=== PATIENT | female | born 1995 | race Hispanic/Latino ===

== ENCOUNTER 2017-02-25 12:06 | Emergency (ER) | payer MEDICAID ==
[2017-02-25 13:17] LABS: APPEARANCE,URINE Cloudy (CLEAR); BILIRUBIN,URINE Negative (NEGATIVE); COLOR,URINE Yellow (YELLOW); GLUCOSE, URINE (UA) Negative (NEGATIVE); KETONES,URINE Negative (NEGATIVE); LEUKOCYTE ESTERASE ,URINE Large (NEGATIVE); NITRATE,URINE Negative (NEGATIVE); OCCULT BLOOD,URINE Large (NEGATIVE); PROTEIN,URINE Trace (NEGATIVE)
[2017-02-25 13:20] LABS: BACTERIA,URINE Few /HPF (None Seen); SQUAMOUS EPITHELIAL CELL,UR Few /LPF (0-2)
[2017-02-25 13:40] LABS: BASOPHILS % (AUTO) 0.4 % (0.0-5.0); EOSINOPHILS % (AUTO) 0.2 % (0.0-8.0); HEMATOCRIT 33.7 % (36-48); LYMPHOCYTES % (AUTO) 20.3 % (21.0-51.0); MEAN CORPUSCULAR HEMOGLOBIN 29.4 pg (27.0-33.0); MEAN CORPUSCULAR HGB CONC 33.7 g/dL (32.0-36.0); MEAN CORPUSCULAR VOLUME 87.1 fL (79-99); MONOCYTES % (AUTO) 5.9 % (3.0-13.0); NEUTROPHILS % (AUTO) 73.2 % (40.0-77.0); PLATELET COUNT (AUTO) 312 K/uL (130-400); RED BLOOD CELL COUNT(AUTO) 3.88 MIL/uL (4.00-5.50); RED CELL DISTRIBUTION WIDTH 12.6 % (11.0-15.5); WHITE BLOOD COUNT (AUTO) 6.5 K/uL (4.8-10.8)
== END 2017-02-25 16:26 | disposition home or self-care (01) ==
LOC: EDH 12:06
DX: O20.0 Threatened abortion (principal); O23.41 Unspecified infection of urinary tract in pregnancy, first trimester; Z3A.01 Less than 8 weeks gestation of pregnancy
CPT/HCPCS: 36415; 76801; 81001; 83033; 84702; 85025; 86900; 86901; 96372; 99285; J2791

== ENCOUNTER 2017-03-23 20:15 | Emergency (ER) | payer MEDICAID ==
[2017-03-23 21:05] LABS: APPEARANCE,URINE Turbid (CLEAR); BILIRUBIN,URINE Negative (NEGATIVE); COLOR,URINE Yellow (YELLOW); GLUCOSE, URINE (UA) Negative (NEGATIVE); KETONES,URINE 15 mg/dL (NEGATIVE); LEUKOCYTE ESTERASE ,URINE Large (NEGATIVE); NITRATE,URINE Negative (NEGATIVE); OCCULT BLOOD,URINE Negative (NEGATIVE); PROTEIN,URINE Negative (NEGATIVE)
[2017-03-23 21:12] LABS: BACTERIA,URINE Few /HPF (None Seen); MUCUS,URINE Few LPF (None Seen); RBC,URINE None Seen /HPF (0-1)
== END 2017-03-23 23:09 | disposition home or self-care (01) ==
LOC: EDH 20:15
DX: O26.892 Other specified pregnancy related conditions, second trimester (principal); R10.31 Right lower quadrant pain; R10.32 Left lower quadrant pain; Z3A.14 14 weeks gestation of pregnancy
CPT/HCPCS: 76805; 81001

== ENCOUNTER 2017-07-08 20:24 | Observation (INO) | payer MEDICAID ==
[~2017-07-08] VITALS: Ht 167.6 cm; Wt 80.7 kg
[2017-07-08 20:54] LABS: BASOPHILS % (AUTO) 0.1 % (0.0-5.0); EOSINOPHILS % (AUTO) 0.1 % (0.0-8.0); HEMATOCRIT 26.7 % (36-48); LYMPHOCYTES % (AUTO) 6.3 % (21.0-51.0); MEAN CORPUSCULAR HEMOGLOBIN 28.8 pg (27.0-33.0); MEAN CORPUSCULAR HGB CONC 33.9 g/dL (32.0-36.0); MEAN CORPUSCULAR VOLUME 84.9 fL (80-100); MONOCYTES % (AUTO) 6.1 % (3.0-13.0); NEUTROPHILS % (AUTO) 87.4 % (40.0-77.0); PLATELET COUNT (AUTO) 378 K/uL (130-400); RED BLOOD CELL COUNT(AUTO) 3.14 MIL/uL (4.00-5.50); RED CELL DISTRIBUTION WIDTH 12.6 % (11.0-15.5); WHITE BLOOD COUNT (AUTO) 11.9 K/uL (4.8-10.8)
[2017-07-08] MEDS ORDERED: SODIUM CHLORIDE 0.9% 1000ML 1,000 ML IV ONE ×2 (21:02→22:25)
[2017-07-08 21:04] LABS: CREATININE 0.5 mg/dL (0.5-1.5); POTASSIUM 3.6 mmol/L (3.5-5.1)
[2017-07-08 21:08] LABS: ALBUMIN 2.4 g/dL (3.5-5.0); BILIRUBIN,TOTAL 0.4 mg/dL (0.2-1.0); TOTAL PROTEIN, SERUM 6.8 g/dL (6.0-8.3)
[2017-07-08 21:25] LABS: APPEARANCE,URINE CLOUDY (CLEAR); BILIRUBIN,URINE NEGATIVE (NEGATIVE); COLOR,URINE YELLOW (YELLOW); GLUCOSE, URINE (UA) 100 mg/dL (NEGATIVE); KETONES,URINE NEGATIVE (NEGATIVE); LEUKOCYTE ESTERASE ,URINE SMALL (NEGATIVE); NITRATE,URINE NEGATIVE (NEGATIVE); OCCULT BLOOD,URINE NEGATIVE (NEGATIVE); PROTEIN,URINE TRACE (NEGATIVE)
[2017-07-08 21:30] LABS: RAPID GROUP A STREP NEGATIVE (NEGATIVE)
[2017-07-08 21:35] LABS: BACTERIA,URINE Moderate /HPF (None Seen); SQUAMOUS EPITHELIAL CELL,UR Few /HPF (0-2)
[2017-07-08] MEDS ORDERED: CEFTRIAXONE SODIUM 1 GM ONE (21:53)
[2017-07-09 00:59] LABS: AMPHET/METH SCREEN,URINE NEGATIVE (NEGATIVE); BARBITURATE SCREEN, URINE NEGATIVE (NEGATIVE); BENZODIAZEPINES SCREEN,URINE NEGATIVE (NEGATIVE); CANNABINOID SCREEN,URINE NEGATIVE (NEGATIVE); COCAINE SCREEN,URINE NEGATIVE (NEGATIVE); OPIATE SCREEN,URINE NEGATIVE (NEGATIVE); PHENCYCLIDINE SCREEN,URINE NEGATIVE (NEGATIVE)
[2017-07-09] MEDS ORDERED: PHARMACY COMMUNICATION MISC SCH (01:00)
[2017-07-09] MEDS ORDERED: GENTAMICIN 120 MG IN 100ML NS 100 ML IV SCH (01:00)
[2017-07-09] MEDS: LACTATED RINGERS 1000ML 1,000 ML IV SCH ×3 (01:28→22:14)
[2017-07-09] MEDS: AMPICILLIN 2GM+NS 100ML 100 ML IV SCH ×4 (02:11→22:13)
[2017-07-09] MEDS ORDERED: GENTAMICIN SULFATE 80 MG/2 ML VIAL ONE (02:12)
[2017-07-09] MEDS ORDERED: MEPERIDINE-PF 50 MG/ML SYG IVP ONE (03:45)
[2017-07-09] MEDS ORDERED: ACETAMINOPHEN-CODEINE 300/30MG TAB PO PRN ×2 (03:45)
[2017-07-09] MEDS ORDERED: PROMETHAZINE HCL 25 MG/ML 1ML AMPULE IM SCH (03:45)
[2017-07-09] MEDS ORDERED: PROMETHAZINE HCL 25 MG/ML 1ML AMPULE IM ONE (03:51)
[2017-07-09] MEDS ORDERED: MEPERIDINE-PF 50 MG/ML SYG ONE (03:52)
[2017-07-09 09:10] VITALS: BP 109/62
[2017-07-09] MEDS: GENTAMICIN 80 MG/NS 100 ML PB 100 ML IV SCH ×2 (11:12→18:34)
[2017-07-09 11:20] VITALS: BP 115/70
[2017-07-09 15:15] VITALS: BP 100/51
[2017-07-09 20:04] VITALS: BP 112/61
[2017-07-09 23:18] VITALS: BP 113/61
[2017-07-10] MEDS ORDERED: GENTAMICIN SULFATE 80 MG/2 ML VIAL ONE (02:32)
[2017-07-10] MEDS: GENTAMICIN 80 MG/NS 100 ML PB 100 ML IV SCH ×3 (02:43→21:02)
[2017-07-10 03:40] VITALS: BP 120/72
[2017-07-10] MEDS: AMPICILLIN 2GM+NS 100ML 100 ML IV SCH ×4 (04:29→22:17)
[2017-07-10 06:10] LABS: BASOPHILS % (AUTO) 0.4 % (0.0-5.0); EOSINOPHILS % (AUTO) 0.1 % (0.0-8.0); HEMATOCRIT 25.9 % (36-48); LYMPHOCYTES % (AUTO) 13.8 % (21.0-51.0); MEAN CORPUSCULAR HEMOGLOBIN 28.6 pg (27.0-33.0); MEAN CORPUSCULAR HGB CONC 33.2 g/dL (32.0-36.0); MEAN CORPUSCULAR VOLUME 86.1 fL (80-100); MONOCYTES % (AUTO) 6.6 % (3.0-13.0); NEUTROPHILS % (AUTO) 79.1 % (40.0-77.0); PLATELET COUNT (AUTO) 340 K/uL (130-400); RED BLOOD CELL COUNT(AUTO) 3.01 MIL/uL (4.00-5.50); RED CELL DISTRIBUTION WIDTH 12.9 % (11.0-15.5)
[2017-07-10 06:15] LABS: CREATININE 0.4 mg/dL (0.5-1.5)
[2017-07-10] MEDS: LACTATED RINGERS 1000ML 1,000 ML IV SCH ×2 (06:46→15:27)
[2017-07-10 07:50] VITALS: BP_SYST 105; BP_SYST 136; BP_DIAS 64; BP_DIAS 77
[2017-07-10 11:33] VITALS: BP 102/56
[2017-07-10 15:37] VITALS: BP 124/76
[2017-07-10 19:55] VITALS: BP 108/69
[2017-07-10 23:37] VITALS: BP 109/64
[2017-07-11] MEDS: LACTATED RINGERS 1000ML 1,000 ML IV SCH ×2 (00:54→07:02)
[2017-07-11 03:01] VITALS: BP 110/60
[2017-07-11] MEDS: AMPICILLIN 2GM+NS 100ML 100 ML IV SCH (03:58)
[2017-07-11] MEDS: GENTAMICIN 80 MG/NS 100 ML PB 100 ML IV SCH (04:48)
[2017-07-11 07:43] VITALS: BP 98/55
[2017-07-11 11:44] VITALS: BP 99/56
== END 2017-07-11 12:50 | disposition home or self-care (01) ==
LOC: EDH 20:24 → INTOOBSV 20:25 → EDHIP 20:25 → OBSVTOIN 20:25 → LDH 07-09 00:38 → WSH 07-09 09:10
PROVIDERS: ADMIT Specialist; ATTEND Specialist
DX: O23.43 Unspecified infection of urinary tract in pregnancy, third trimester (principal); Z3A.29 29 weeks gestation of pregnancy; O26.893 Other specified pregnancy related conditions, third trimester; R00.0 Tachycardia, unspecified; M54.5 Low back pain
CPT/HCPCS: 36415 ×3; 76805; 80053; 80170 ×2; 80305; 81001; 82565; 83605; 83690; 84439; 84443; 84520; 85025 ×2; 87088; 87186; 87804 ×2; 87880; 93005; 96361 ×4; 96365; 96366; 96367; 96372; 96375; 96376 ×3; 99285; G0378 ×64; J0290 ×9; J0696; J1580 ×8; J2175; J2550; J7030 ×2; J7120 ×4; 96360; A4218

== ENCOUNTER 2017-08-01 12:24 | Observation (INO) | payer MEDICAID ==
[~2017-08-01] VITALS: Ht 167.6 cm; Wt 81.6 kg
[2017-08-01 13:25] LABS: APPEARANCE,URINE Cloudy (CLEAR); BILIRUBIN,URINE Negative (NEGATIVE); COLOR,URINE Dark Yellow (YELLOW); GLUCOSE, URINE (UA) Negative (NEGATIVE); KETONES,URINE Negative (NEGATIVE); LEUKOCYTE ESTERASE ,URINE Large (NEGATIVE); NITRATE,URINE Negative (NEGATIVE); OCCULT BLOOD,URINE Negative (NEGATIVE); PROTEIN,URINE Trace (NEGATIVE)
[2017-08-01] MEDS: LACTATED RINGERS 1000ML 1,000 ML IV SCH ×2 (13:30→14:22)
[2017-08-01 13:38] LABS: BACTERIA,URINE Few /HPF (None Seen); MUCUS,URINE Few LPF (None Seen); SQUAMOUS EPITHELIAL CELL,UR Moderate /HPF (0-2)
[2017-08-01 13:39] LABS: WBC,URINE 26-50 /HPF (0-1)
[2017-08-01] MEDS ORDERED: LACTATED RINGERS 1000ML IV SCH (14:15)
[2017-08-01] MEDS ORDERED: TERBUTALINE SULFATE VIAL 1MG/ML SQ PRN (14:15)
[2017-08-01] MEDS ORDERED: CEFTRIAXONE 1GM/D5W 50ML 50 ML IV SCH (14:15)
[2017-08-01] MEDS ORDERED: TERBUTALINE SULFATE VIAL 1MG/ML SQ ONE (14:20)
[2017-08-01] MEDS ORDERED: CEFTRIAXONE SODIUM 1 GM IVP SCH (15:15)
== END 2017-08-01 16:57 | disposition home or self-care (01) ==
LOC: EDH 12:24 → LDH 12:25
PROVIDERS: ADMIT Obstetrics & Gynecology; ATTEND Obstetrics & Gynecology
DX: O26.893 Other specified pregnancy related conditions, third trimester (principal); R10.13 Epigastric pain; Z3A.32 32 weeks gestation of pregnancy
CPT/HCPCS: 81001; 96372; 96374; 99285; G0378 ×5; J0696; J3105; J7120; 96360

== ENCOUNTER 2017-08-21 16:50 | Emergency (ER) | payer MEDICAID | END 2017-08-21 17:08 | disposition home or self-care (01) | LOC: EDH 16:50 | DX: O26.893 Other specified pregnancy related conditions, third trimester (principal); J06.9 Acute upper respiratory infection, unspecified; Z87.891 Personal history of nicotine dependence; Z3A.35 35 weeks gestation of pregnancy | CPT/HCPCS: 99281 ==

== ENCOUNTER 2018-04-17 12:43 | Emergency (ER) | payer MEDICAID ==
[2018-04-17] MEDS ORDERED: LIDOCAINE HCL 2% VISCOUS 15 ML UDCUP ONE (14:23)
[2018-04-17] MEDS ORDERED: MAG HYDROX/AL HYDROX/SIMETH ES 30 ML SUSP UDCUP ONE (14:23)
[2018-04-17 14:55] LABS: BILIRUBIN,URINE Negative (NEGATIVE); COLOR,URINE Dark Yellow (YELLOW); GLUCOSE, URINE (UA) Negative (NEGATIVE); KETONES,URINE 15 mg/dL (NEGATIVE); LEUKOCYTE ESTERASE ,URINE Large (NEGATIVE); NITRATE,URINE Positive (NEGATIVE); OCCULT BLOOD,URINE Negative (NEGATIVE); PROTEIN,URINE Negative (NEGATIVE)
[2018-04-17 14:56] LABS: APPEARANCE,URINE CLOUDY (CLEAR)
[2018-04-17 14:58] LABS: RBC,URINE None Seen /HPF (0-1)
[2018-04-17 14:59] LABS: BACTERIA,URINE Moderate /HPF (None Seen)
[2018-04-17 15:10] LABS: HCG,QUAL RESULT POSITIVE (NEGATIVE)
== END 2018-04-17 15:32 | disposition home or self-care (01) ==
LOC: EDH 12:43
DX: N39.0 Urinary tract infection, site not specified (principal); Z33.1 Pregnant state, incidental
CPT/HCPCS: 81001; 81025

== ENCOUNTER 2018-05-15 16:19 | Emergency (ER) | payer MEDICAID ==
[2018-05-15 16:43] LABS: APPEARANCE,URINE Clear (CLEAR); BILIRUBIN,URINE Negative (NEGATIVE); COLOR,URINE Yellow (YELLOW); GLUCOSE, URINE (UA) Negative (NEGATIVE); KETONES,URINE Negative (NEGATIVE); LEUKOCYTE ESTERASE ,URINE Moderate (NEGATIVE); NITRATE,URINE Positive (NEGATIVE); OCCULT BLOOD,URINE Negative (NEGATIVE); PROTEIN,URINE Negative (NEGATIVE)
[2018-05-15 16:52] LABS: BACTERIA,URINE Moderate /HPF (None Seen); RBC,URINE None Seen /HPF (0-1); SQUAMOUS EPITHELIAL CELL,UR 0-2 /HPF (0-2)
[2018-05-15 17:26] LABS: BASOPHILS % (AUTO) 0.4 % (0.0-5.0); EOSINOPHILS % (AUTO) 0.4 % (0.0-8.0); HEMATOCRIT 33.9 % (36-48); LYMPHOCYTES % (AUTO) 20.4 % (21.0-51.0); MEAN CORPUSCULAR HGB CONC 33.9 g/dL (32.0-36.0); MEAN CORPUSCULAR VOLUME 85.5 fL (79-99); NEUTROPHILS % (AUTO) 73.8 % (40.0-77.0); PLATELET COUNT (AUTO) 416 K/uL (130-400); RED BLOOD CELL COUNT(AUTO) 3.96 MIL/uL (4.00-5.50); WHITE BLOOD COUNT (AUTO) 7.9 K/uL (4.8-10.8)
[2018-05-15 17:42] LABS: CREATININE 0.6 mg/dL (0.5-1.5)
[2018-05-15] MEDS ORDERED: NITROFURANTOIN MONOHYD/M-CRYST 100 MG CAPSULE PO ONE (17:52)
[2018-05-15 18:20] LABS: ALBUMIN 3.6 g/dL (3.5-5.0); BILIRUBIN,TOTAL 0.2 mg/dL (0.2-1.0)
== END 2018-05-15 18:20 | disposition home or self-care (01) ==
LOC: EDH 16:19
DX: O20.0 Threatened abortion (principal); O23.41 Unspecified infection of urinary tract in pregnancy, first trimester; Z3A.10 10 weeks gestation of pregnancy
CPT/HCPCS: 36415; 76801; 80053; 81001; 84702; 85025; 86900; 86901; 87077; 87088; 87186

== ENCOUNTER 2018-09-24 14:36 | Emergency (ER) | payer MEDICAID | END 2018-09-24 15:03 | disposition home or self-care (01) | LOC: EDH 14:36 | DX: O99.341 Other mental disorders complicating pregnancy, first trimester (principal); F41.9 Anxiety disorder, unspecified; F31.9 Bipolar disorder, unspecified; Z3A.01 Less than 8 weeks gestation of pregnancy ==

== ENCOUNTER 2018-10-30 11:11 | Observation (INO) | payer MEDICAID ==
[2018-10-30 11:41] LABS: APPEARANCE,URINE Cloudy (CLEAR); BILIRUBIN,URINE Negative (NEGATIVE); COLOR,URINE Dark Yellow (YELLOW); GLUCOSE, URINE (UA) Negative (NEGATIVE); KETONES,URINE Negative (NEGATIVE); LEUKOCYTE ESTERASE ,URINE Large (NEGATIVE); NITRATE,URINE Negative (NEGATIVE); OCCULT BLOOD,URINE Negative (NEGATIVE); PH,URINE 6.5 (5.0-8.0); PROTEIN,URINE Trace mg/dL (NEGATIVE)
[2018-10-30 11:50] LABS: BACTERIA,URINE Moderate /HPF (None Seen); SQUAMOUS EPITHELIAL CELL,UR Moderate /HPF (0-2); WBC,URINE 51-100 /HPF (0-1)
[2018-10-30 11:51] LABS: MUCUS,URINE Few LPF (None Seen)
[2018-10-30] MEDS ORDERED: LACTATED RINGERS 1000ML 1,000 ML IV SCH (14:00)
[2018-10-30] MEDS ORDERED: CEFTRIAXONE SODIUM 1 GM ONE (14:27)
[2018-10-31] MEDS ORDERED: CEFTRIAXONE SODIUM 1 GM IVP SCH (09:00)
== END 2018-10-30 15:40 | disposition home or self-care (01) ==
LOC: EDH 11:11 → LDH 11:23
PROVIDERS: ADMIT Specialist; ATTEND Specialist
DX: O26.893 Other specified pregnancy related conditions, third trimester (principal); R10.2 Pelvic and perineal pain; O99.343 Other mental disorders complicating pregnancy, third trimester; F32.9 Major depressive disorder, single episode, unspecified; Z3A.33 33 weeks gestation of pregnancy
CPT/HCPCS: 81001; 99284; G0378 ×4; J0696; J7120; 96360

== ENCOUNTER 2018-12-03 17:36 | Observation (INO) | payer MEDICAID | END 2018-12-03 19:00 | disposition home or self-care (01) | LOC: LDH 17:36 | PROVIDERS: ADMIT Specialist; ATTEND Specialist | DX: O36.8130 Decreased fetal movements, third trimester, not applicable or unspecified (principal); O99.343 Other mental disorders complicating pregnancy, third trimester; F32.9 Major depressive disorder, single episode, unspecified; Z3A.38 38 weeks gestation of pregnancy | CPT/HCPCS: 59025; 76819; G0378 ==

== ENCOUNTER 2019-03-19 13:01 | Emergency (ER) | payer MEDICAID ==
[2019-03-19] MEDS ORDERED: IPRATROPIUM/ALBUTEROL SULFATE 3 ML SOLUTION IH ONE (14:35)
== END 2019-03-19 14:10 | disposition home or self-care (01) ==
LOC: EDH 13:01
DX: M94.0 Chondrocostal junction syndrome [Tietze] (principal); F41.9 Anxiety disorder, unspecified; F31.9 Bipolar disorder, unspecified
CPT/HCPCS: 93005

== ENCOUNTER 2019-05-31 12:43 | Emergency (ER) | payer MEDICAID ==
[2019-05-31] MEDS ORDERED: ACETAMINOPHEN 325 MG TAB ONE (12:53)
[2019-05-31 13:08] LABS: RAPID GROUP A STREP POSITIVE (NEGATIVE)
[2019-05-31] MEDS ORDERED: LIDOCAINE HCL-MPF 1% 2ML VIAL ONE (13:09)
[2019-05-31] MEDS ORDERED: CEFTRIAXONE SODIUM 1 GM ONE (13:09)
== END 2019-05-31 13:32 | disposition home or self-care (01) ==
LOC: EDH 12:43
DX: J02.0 Streptococcal pharyngitis (principal); F41.9 Anxiety disorder, unspecified; F32.9 Major depressive disorder, single episode, unspecified
CPT/HCPCS: 87804 ×2; 87880; 96372; 99283; J0696; J3490

== ENCOUNTER 2020-03-16 14:14 | Emergency (ER) | payer MEDICAID ==
[2020-03-16] MEDS ORDERED: ACETAMINOPHEN 325 MG TAB ONE (14:47)
[2020-03-16 14:48] LABS: BASOPHILS % (AUTO) 0.2 % (0.0-5.0); EOSINOPHILS % (AUTO) 0.4 % (0.0-8.0); HEMATOCRIT 33.7 % (36-48); MEAN CORPUSCULAR HEMOGLOBIN 28.3 pg (27.0-33.0); MEAN CORPUSCULAR HGB CONC 32.3 g/dL (32.0-36.0); MEAN CORPUSCULAR VOLUME 87.5 fL (79-99); MONOCYTES % (AUTO) 5.1 % (3.0-13.0); PLATELET COUNT (AUTO) 426 K/uL (130-400); RED BLOOD CELL COUNT(AUTO) 3.85 MIL/uL (4.00-5.50); RED CELL DISTRIBUTION WIDTH 11.9 % (11.0-15.5); WHITE BLOOD COUNT (AUTO) 9.8 K/uL (4.8-10.8)
[2020-03-16 14:54] LABS: APPEARANCE,URINE Clear (CLEAR); BILIRUBIN,URINE Negative (NEGATIVE); COLOR,URINE Yellow (YELLOW); GLUCOSE, URINE (UA) Negative (NEGATIVE); KETONES,URINE Negative (NEGATIVE); LEUKOCYTE ESTERASE ,URINE Trace (NEGATIVE); NITRATE,URINE Negative (NEGATIVE); OCCULT BLOOD,URINE Moderate (NEGATIVE); PROTEIN,URINE Negative (NEGATIVE); UROBILINOGEN,URINE 0.2 mg/dL (0.2-1.0)
[2020-03-16 14:56] LABS: CREATININE 0.7 mg/dL (0.5-1.5); POTASSIUM 3.6 mmol/L (3.5-5.1)
[2020-03-16 15:01] LABS: HCG,QUAL RESULT NEGATIVE (NEGATIVE)
[2020-03-16 15:02] LABS: ALBUMIN 3.8 g/dL (3.5-5.0); BILIRUBIN,TOTAL 0.5 mg/dL (0.2-1.0); TOTAL PROTEIN, SERUM 8.9 g/dL (6.0-8.3)
[2020-03-16 15:13] LABS: BACTERIA,URINE Few /HPF (None Seen); SQUAMOUS EPITHELIAL CELL,UR Few /HPF (0-2)
== END 2020-03-16 16:29 | disposition home or self-care (01) ==
LOC: EDH 14:14
DX: R07.1 Chest pain on breathing (principal); F41.9 Anxiety disorder, unspecified; F31.9 Bipolar disorder, unspecified; Z72.0 Tobacco use
CPT/HCPCS: 36415; 71045; 80053; 81001; 81025; 82150; 83690; 85025; 93005

== ENCOUNTER 2020-06-24 19:27 | Emergency (ER) | payer MEDICAID ==
[2020-06-24 19:48] LABS: APPEARANCE,URINE CLOUDY (CLEAR); BILIRUBIN,URINE NEGATIVE (NEGATIVE); COLOR,URINE YELLOW (YELLOW); GLUCOSE, URINE (UA) NEGATIVE (NEGATIVE); KETONES,URINE NEGATIVE (NEGATIVE); LEUKOCYTE ESTERASE ,URINE MODERATE (NEGATIVE); NITRATE,URINE NEGATIVE (NEGATIVE); OCCULT BLOOD,URINE TRACE-INTACT (NEGATIVE); PH,URINE 5.5 (5.0-8.0); PROTEIN,URINE NEGATIVE (NEGATIVE); UROBILINOGEN,URINE 0.2 mg/dL (0.2-1.0)
[2020-06-24 19:56] LABS: HCG,QUAL RESULT NEGATIVE (NEGATIVE)
[2020-06-24 19:59] LABS: BACTERIA,URINE Few /HPF (None Seen); MUCUS,URINE Few LPF (None Seen); SQUAMOUS EPITHELIAL CELL,UR Moderate /HPF (0-2)
[2020-06-24 20:00] LABS: HYALINE CASTS, URINE 0-1 /LPF (0-1 /LPF)
[2020-06-24 20:03] LABS: BASOPHILS % (AUTO) 0.2 % (0.0-5.0); EOSINOPHILS % (AUTO) 0.3 % (0.0-8.0); HEMATOCRIT 33.9 % (36-48); LYMPHOCYTES % (AUTO) 22.1 % (21.0-51.0); MEAN CORPUSCULAR HEMOGLOBIN 27.9 pg (27.0-33.0); MEAN CORPUSCULAR HGB CONC 32.4 g/dL (32.0-36.0); MONOCYTES % (AUTO) 5.1 % (3.0-13.0); NEUTROPHILS % (AUTO) 72.1 % (40.0-77.0); PLATELET COUNT (AUTO) 343 K/uL (130-400); RED BLOOD CELL COUNT(AUTO) 3.94 MIL/uL (4.00-5.50); RED CELL DISTRIBUTION WIDTH 12.4 % (11.0-15.5); WHITE BLOOD COUNT (AUTO) 8.6 K/uL (4.8-10.8)
[2020-06-24 20:17] LABS: CREATININE 0.7 mg/dL (0.5-1.5); POTASSIUM 3.5 mmol/L (3.5-5.1)
[2020-06-24 20:21] LABS: ALBUMIN 3.7 g/dL (3.5-5.0); BILIRUBIN,TOTAL 0.3 mg/dL (0.2-1.0); TOTAL PROTEIN, SERUM 8.4 g/dL (6.0-8.3)
[2020-06-24] MEDS ORDERED: METRONIDAZOLE 500 MG TABLET ONE (20:34)
[2020-06-24] MEDS ORDERED: ONDANSETRON HCL 4 MG/2 ML VIAL ONE (20:34)
[2020-06-24] MEDS ORDERED: KETOROLAC TROMETHAMINE 30MG/ML ONE (20:34)
[2020-06-24] MEDS ORDERED: SODIUM CHLORIDE 0.9% 1000ML 1,000 ML IV ONE (20:37)
== END 2020-06-24 21:23 | disposition home or self-care (01) ==
LOC: EEVIPCON 19:27 → EDH 19:27
DX: K52.9 Noninfective gastroenteritis and colitis, unspecified (principal); F41.9 Anxiety disorder, unspecified; F32.9 Major depressive disorder, single episode, unspecified
CPT/HCPCS: 36415; 74176; 80053; 81001; 81025; 83605; 83690; 85025; 87088; 96361; 96374; 96375; 99284; J1885; J2405; J7030

== ENCOUNTER 2020-10-12 12:03 | Emergency (ER) | payer MEDICAID ==
[~2020-10-12] VITALS: Ht 167.6 cm; Wt 86.2 kg
[2020-10-12 12:05] VITALS: BP 130/73
[2020-10-12 12:06] VITALS: BP 130/73
[2020-10-12] MEDS ORDERED: CEFTRIAXONE 1G VIAL IM ONE (13:30)
[2020-10-12] MEDS ORDERED: PHENAZOPYRIDINE HCL 200 MG TABLET PO ONE (13:30)
[2020-10-12] MEDS ORDERED: CEFTRIAXONE 1G VIAL ONE (13:32)
[2020-10-12] MEDS ORDERED: LIDOCAINE HCL-MPF 1% 2ML VIAL ONE (13:32)
[2020-10-12] MEDS ORDERED: PHENAZOPYRIDINE HCL 200 MG TABLET ONE (13:33)
[2020-10-12 13:45] LABS: APPEARANCE,URINE Clear (CLEAR); BILIRUBIN,URINE Negative (NEGATIVE); COLOR,URINE Dark Yellow (YELLOW); GLUCOSE, URINE (UA) Negative (NEGATIVE); KETONES,URINE Trace mg/dL (NEGATIVE); LEUKOCYTE ESTERASE ,URINE Moderate (NEGATIVE); NITRATE,URINE Negative (NEGATIVE); OCCULT BLOOD,URINE Negative (NEGATIVE); PROTEIN,URINE Negative (NEGATIVE)
[2020-10-12 14:56] LABS: BACTERIA,URINE Few /HPF (None Seen); MUCUS,URINE Few LPF (None Seen); RBC,URINE 0-1 /HPF (0-1); SQUAMOUS EPITHELIAL CELL,UR Few /HPF (0-2)
[2020-10-12] MEDS ORDERED: CEPH500B PO (15:21)
[2020-10-12] MEDS ORDERED: PHEN-847 PO (15:21)
== END 2020-10-12 15:31 | disposition home or self-care (01) ==
LOC: EDH 12:03
DX: N39.0 Urinary tract infection, site not specified (principal); J02.9 Acute pharyngitis, unspecified
CPT/HCPCS: 81001; 81025; 87088; 87880; 96372; 99283; J0696; J3490

== ENCOUNTER 2021-05-14 15:18 | Emergency (ER) | payer MEDICAID ==
[~2021-05-14] VITALS: Ht 167.6 cm; Wt 81.6 kg
[~2021-05-14 15:18] MED LIST: CEPH500B PO; PHEN-847 PO
[2021-05-14 16:16] LABS: BASOPHILS % (AUTO) 0.5 % (0.0-5.0); EOSINOPHILS % (AUTO) 0.5 % (0.0-8.0); HEMATOCRIT 34.4 % (36-48); LYMPHOCYTES % (AUTO) 29.8 % (21.0-51.0); MEAN CORPUSCULAR HEMOGLOBIN 28.8 pg (27.0-33.0); MEAN CORPUSCULAR HGB CONC 32.8 g/dL (32.0-36.0); MEAN CORPUSCULAR VOLUME 87.5 fL (79-99); NEUTROPHILS % (AUTO) 61.9 % (40.0-77.0); PLATELET COUNT (AUTO) 328 K/uL (130-400); RED BLOOD CELL COUNT(AUTO) 3.93 MIL/uL (4.00-5.50); RED CELL DISTRIBUTION WIDTH 12.1 % (11.0-15.5); WHITE BLOOD COUNT (AUTO) 6.6 K/uL (4.8-10.8)
[2021-05-14 16:27] LABS: CREATININE 0.8 mg/dL (0.5-1.5)
[2021-05-14 16:31] LABS: ALBUMIN 3.7 g/dL (3.5-5.0); BILIRUBIN,TOTAL 0.3 mg/dL (0.2-1.0)
[2021-05-14 16:42] LABS: APPEARANCE,URINE Clear (CLEAR); BILIRUBIN,URINE Negative (NEGATIVE); COLOR,URINE Yellow (YELLOW); GLUCOSE, URINE (UA) Negative (NEGATIVE); KETONES,URINE Negative (NEGATIVE); LEUKOCYTE ESTERASE ,URINE Trace (NEGATIVE); NITRATE,URINE Negative (NEGATIVE); OCCULT BLOOD,URINE Negative (NEGATIVE); PH,URINE >=9.0 (5.0-8.0); PROTEIN,URINE Trace mg/dL (NEGATIVE)
[2021-05-14 16:44] LABS: HCG,QUAL RESULT NEGATIVE (NEGATIVE)
[2021-05-14 16:50] LABS: AMPHET/METH SCREEN,URINE NEGATIVE (NEGATIVE); BARBITURATE SCREEN, URINE NEGATIVE (NEGATIVE); BENZODIAZEPINES SCREEN,URINE NEGATIVE (NEGATIVE); CANNABINOID SCREEN,URINE POSITIVE (NEGATIVE); COCAINE SCREEN,URINE NEGATIVE (NEGATIVE); OPIATE SCREEN,URINE NEGATIVE (NEGATIVE); PHENCYCLIDINE SCREEN,URINE NEGATIVE (NEGATIVE)
[2021-05-14] MEDS ORDERED: PHEN-847 PO (16:58)
[2021-05-14] MEDS ORDERED: CEPH500B PO (16:58)
[2021-05-14 17:02] LABS: BACTERIA,URINE Rare /HPF (None Seen); MUCUS,URINE Few LPF (None Seen); SQUAMOUS EPITHELIAL CELL,UR Few /HPF (0-2)
[2021-05-14 17:06] VITALS: BP 117/66
== END 2021-05-14 17:10 | disposition home or self-care (01) ==
LOC: EDH 15:18
DX: N39.0 Urinary tract infection, site not specified (principal); R30.0 Dysuria; F41.9 Anxiety disorder, unspecified; F32.A Depression, unspecified
CPT/HCPCS: 36415; 80053; 80305; 81001; 81025; 82150; 83690; 85025

== ENCOUNTER 2021-06-30 21:23 | Emergency (ER) | payer MEDICAID ==
[~2021-06-30] VITALS: Ht 167.6 cm; Wt 86.2 kg
[2021-06-30 21:48] LABS: BASOPHILS % (AUTO) 0.4 % (0.0-5.0); EOSINOPHILS % (AUTO) 0.6 % (0.0-8.0); HEMATOCRIT 38.1 % (36-48); LYMPHOCYTES % (AUTO) 28.7 % (21.0-51.0); MEAN CORPUSCULAR HEMOGLOBIN 27.8 pg (27.0-33.0); MEAN CORPUSCULAR HGB CONC 31.8 g/dL (32.0-36.0); MEAN CORPUSCULAR VOLUME 87.6 fL (79-99); MONOCYTES % (AUTO) 6.1 % (3.0-13.0); NEUTROPHILS % (AUTO) 63.8 % (40.0-77.0); PLATELET COUNT (AUTO) 385 K/uL (130-400); RED BLOOD CELL COUNT(AUTO) 4.35 MIL/uL (4.00-5.50); RED CELL DISTRIBUTION WIDTH 12.1 % (11.0-15.5); WHITE BLOOD COUNT (AUTO) 9.5 K/uL (4.8-10.8)
[2021-06-30 21:50] LABS: APPEARANCE,URINE Clear (CLEAR); BILIRUBIN,URINE Negative (NEGATIVE); COLOR,URINE Yellow (YELLOW); GLUCOSE, URINE (UA) Negative (NEGATIVE); KETONES,URINE Negative (NEGATIVE); LEUKOCYTE ESTERASE ,URINE Negative (NEGATIVE); NITRATE,URINE Negative (NEGATIVE); OCCULT BLOOD,URINE Negative (NEGATIVE); PROTEIN,URINE Negative (NEGATIVE); UROBILINOGEN,URINE 0.2 mg/dL (0.2-1.0)
[2021-06-30 21:51] LABS: HCG,QUAL RESULT NEGATIVE (NEGATIVE)
[2021-06-30 22:00] LABS: CREATININE 0.8 mg/dL (0.5-1.5)
[2021-06-30 22:09] LABS: ALBUMIN 3.9 g/dL (3.5-5.0); BILIRUBIN,TOTAL 0.2 mg/dL (0.2-1.0); TOTAL PROTEIN, SERUM 8.3 g/dL (6.0-8.3)
[2021-06-30] MEDS ORDERED: KETOROLAC 60 MG VIAL (30MG/ML) IM ONE (22:30)
[2021-06-30] MEDS ORDERED: CYCLOBENZAPRINE HCL 10 MG TABLET PO ONE (22:30)
[2021-06-30] MEDS ORDERED: NAPR-1180 PO (22:40)
[2021-06-30] MEDS ORDERED: CYCL10TA16 PO (22:40)
[2021-06-30 22:44] VITALS: BP 138/84
== END 2021-06-30 22:52 | disposition home or self-care (01) ==
LOC: EDH 21:23
DX: M94.0 Chondrocostal junction syndrome [Tietze] (principal); R03.0 Elevated blood-pressure reading, without diagnosis of hypertension; F41.9 Anxiety disorder, unspecified; E66.9 Obesity, unspecified; Z68.30 Body mass index [BMI] 30.0-30.9, adult; Z79.1 Long term (current) use of non-steroidal anti-inflammatories (NSAID)
CPT/HCPCS: 36415; 80053; 81003; 81025; 84484; 85025; 93005; 96372; 99284; J1885

== ENCOUNTER 2021-07-23 23:30 | Emergency (ER) | payer MEDICAID ==
[~2021-07-23] VITALS: Ht 170.2 cm; Wt 86.2 kg
[~2021-07-23 23:30] MED LIST changes: +CYCL10TA16 PO; +NAPR-1180 PO
[2021-07-24] MEDS ORDERED: NAPR-1180 PO (02:00)
[2021-07-24] MEDS ORDERED: AZIT1PAC7 PO (02:00)
[2021-07-24] MEDS: KETOROLAC 15MG/ML VIAL (15MG/ML) IM ONE (02:02)
[2021-07-24] MEDS: KETOROLAC 15MG/ML VIAL (15MG/ML) ONE (02:03)
[2021-07-24 02:04] VITALS: BP 121/73
== END 2021-07-24 02:10 | disposition home or self-care (01) ==
LOC: EDH 23:30
DX: J02.9 Acute pharyngitis, unspecified (principal); Z20.822 Contact with and (suspected) exposure to COVID-19; Z79.899 Other long term (current) drug therapy
CPT/HCPCS: 87635; 87804 ×2; 87880; 96372; 99283; C9803; J1885

== ENCOUNTER 2022-02-07 18:55 | Emergency (ER) | payer MEDICAID ==
[~2022-02-07] VITALS: Ht 167.6 cm; Wt 89.8 kg
[~2022-02-07 18:55] MED LIST changes: +AZIT1PAC7 PO
[2022-02-07 19:48] LABS: APPEARANCE,URINE CLEAR (CLEAR); BILIRUBIN,URINE NEGATIVE (NEGATIVE); COLOR,URINE COLORLESS (YELLOW); GLUCOSE, URINE (UA) NEGATIVE (NEGATIVE); KETONES,URINE NEGATIVE (NEGATIVE); LEUKOCYTE ESTERASE ,URINE NEGATIVE Leu/uL (NEGATIVE); NITRATE,URINE NEGATIVE (NEGATIVE); OCCULT BLOOD,URINE NEGATIVE (NEGATIVE); PROTEIN,URINE NEGATIVE (NEGATIVE); UROBILINOGEN,URINE 0.2 mg/dL (0.2-1.0)
[2022-02-07 19:50] LABS: HCG,QUALITATIVE URINE NEGATIVE (NEGATIVE)
[2022-02-07 20:08] VITALS: BP 142/97
[2022-02-07] MEDS ORDERED: MECL-226 PO (20:56)
== END 2022-02-07 21:33 | disposition home or self-care (01) ==
LOC: EDH 18:55
DX: R42 Dizziness and giddiness (principal); F41.9 Anxiety disorder, unspecified; F32.9 Major depressive disorder, single episode, unspecified; Z79.899 Other long term (current) drug therapy
CPT/HCPCS: 81003; 81025; 82948; 93005

== ENCOUNTER 2022-07-24 20:14 | Emergency (ER) | payer MEDICAID ==
[~2022-07-24 20:14] MED LIST changes: +MECL-226 PO
== END 2022-07-24 21:25 | disposition left against medical advice (07) ==
LOC: EDH 20:14
DX: N93.9 Abnormal uterine and vaginal bleeding, unspecified (principal); Z53.21 Procedure and treatment not carried out due to patient leaving prior to being seen by health care provider

== ENCOUNTER 2023-02-01 07:25 | Emergency (ER) | payer MEDICAID ==
[~2023-02-01] VITALS: Ht 170.2 cm; Wt 86.2 kg
[2023-02-01 08:12] LABS: SARS-CoV-2, RNA, NAAT NEGATIVE SARS CoV-2 (NEGATIVE)
[2023-02-01 08:13] LABS: RAPID GROUP A STREP negative (NEGATIVE)
[2023-02-01 08:18] LABS: INFLUENZA TYPE A Negative For Type A (NEGATIVE)
[2023-02-01 08:27] LABS: INFLUENZA TYPE B Positive For Type B (NEGATIVE)
[2023-02-01 09:08] VITALS: BP 136/78; PULSE 84; RESP 18; O2SAT 98
== END 2023-02-01 09:13 | disposition home or self-care (01) ==
LOC: EDH 07:25
DX: J10.1 Influenza due to other identified influenza virus with other respiratory manifestations (principal); Z20.822 Contact with and (suspected) exposure to COVID-19; Z79.899 Other long term (current) drug therapy; Z98.890 Other specified postprocedural states
CPT/HCPCS: 99283; 87635; 87880; 87804 ×2; C9803

== ENCOUNTER 2023-02-20 06:07 | Emergency (ER) | payer MEDICAID ==
[~2023-02-20] VITALS: Ht 170.2 cm; Wt 87.1 kg
[2023-02-20 07:06] VITALS: BP 115/73; PULSE 87; RESP 18; O2SAT 97
[2023-02-20 07:46] LABS: RAPID GROUP A STREP negative (NEGATIVE)
[2023-02-20 07:52] LABS: SARS-CoV-2, RNA, NAAT NEGATIVE SARS CoV-2 (NEGATIVE)
[2023-02-20 07:56] LABS: INFLUENZA TYPE A Negative For Type A (NEGATIVE); INFLUENZA TYPE B Negative For Type B (NEGATIVE)
[2023-02-20] MEDS ORDERED: KETOROLAC 60 MG VIAL (30MG/ML) IM ONE (08:30)
[2023-02-20] MEDS ORDERED: AMOX/CLAV 875/125MG TAB PO ONE (08:30)
[2023-02-20] MEDS ORDERED: AMOX-427 PO (09:20)
[2023-02-20] MEDS ORDERED: CIPR7.5D7 OT (09:20)
== END 2023-02-20 09:29 | disposition home or self-care (01) ==
LOC: EDH 06:07
DX: J06.9 Acute upper respiratory infection, unspecified (principal); H66.91 Otitis media, unspecified, right ear; R13.10 Dysphagia, unspecified; Z20.822 Contact with and (suspected) exposure to COVID-19; Z79.899 Other long term (current) drug therapy; Z98.890 Other specified postprocedural states
CPT/HCPCS: 99283; 87635; 87880; 87804 ×2; 96372; C9803; J1885

== ENCOUNTER 2023-07-23 03:02 | Emergency (ER) | payer MEDICAID ==
[~2023-07-23 03:02] MED LIST changes: +AMOX-427 PO; +CIPR7.5D7 OT; +SULF1TAB42 PO
[2023-07-23] MEDS: HYDROXYZINE 50MG VIAL 50 MG/ML VIAL IM SCH (03:53)
[2023-07-23 04:11] VITALS: BP 128/82; PULSE 88; RESP 16; O2SAT 99
== END 2023-07-23 04:12 | disposition home or self-care (01) ==
LOC: EDH 03:02
DX: F41.9 Anxiety disorder, unspecified (principal); F32.A Depression, unspecified; Z79.899 Other long term (current) drug therapy; Z98.890 Other specified postprocedural states
CPT/HCPCS: 99283; 96372; J3410

== ENCOUNTER 2024-05-01 08:51 | Emergency (ER) | payer MEDICAID ==
[~2024-05-01] VITALS: Ht 160 cm; Wt 97.5 kg
--- NOTE | 2024-05-01 09:01 | ERN ---
General Chief Complaint: Fever Stated Complaint: FEVER, CHILLS, NAUSEA, THROAT Time Seen by MD: 08:52 Source: patient History of Present Illness Initial Comments Patient is a 29-year-old female coming in to be evaluated for URI symptoms. Per patient she has been having sore throat for two days. ALong with this patient feels fever and chills. Allergies: Coded Allergies: No Known Drug Allergies (Verified Allergy, Unknown, 12/15/14) Home Meds Active Scripts Sulfamethoxazole/Trimethoprim (Bactrim Ds Tablet) 800 Mg-160 Mg Tablet, 1 TAB PO BID for 7 Days, #7 TAB Prov:TOM SAHNI 07/10/23 Ciprofloxacin HCl/Dexameth (Ciproflox-Dexameth Otic Susp) 0.3 %-0.1 % Drops.susp, 7.5 ML OT BID, #4 DROP 0 Refills Prov:ODALIS MORALEZ Sr., MD 02/20/23 Amoxicillin/Potassium Clav (Augmentin Xr 1,000-62.5 Tab) 1,000 Mg-62.5 Mg Tab.er.12h, 1 EACH PO BID for 10 Days, #20 TAB 0 Refills Prov:ODALIS MORALEZ Sr., MD 02/20/23 Meclizine HCl (Meclizine HCl) 12.5 Mg Tablet, 12.5 MG PO BID PRN for VERTIGO for 5 Days, #10 TAB Prov:DELICIA PASCUAL 02/07/22 Naproxen (Naprosyn) 500 Mg Tablet, 500 MG PO BIDPC for 14 Days, #28 TAB 0 Refil ls Prov:SARAI GARCIA MD 07/24/21 Azithromycin (Azithromycin) 1 Gm Packet, 1 TAB PO AD for 5 Days, #1 PKT Prov:SARAI GARCIA MD 07/24/21 Cyclobenzaprine HCl (Flexeril) 10 Mg Tab, 10 MG PO BID, #30 TAB Prov:RAÚL ROBLES 06/30/21 Naproxen (Naprosyn) 500 Mg Tablet, 500 MG PO BIDPC, #60 TAB Prov:RAÚL ROBLES 06/30/21 Phenazopyridine HCl (Pyridium) 200 Mg Tab, 200 MG PO TIDPC, #9 TAB TAKE WITH FOOD TO PREVENT STOMACH UPSET. Prov:CHECO BASURTO ADOPTION SERVICES MANAGER 05/14/21 Cephalexin Monohydrate (Keflex) 500 Mg Cap, 500 MG PO QID for 7 Days, #28 CAP Prov:CHECO BASURTO ADOPTION SERVICES MANAGER 05/14/21 Phenazopyridine HCl (Pyridium) 200 Mg Tab, 200 MG PO TIDPC for 3 Days, #9 TAB TAKE WITH FOOD TO PREVENT STOMACH UPSET. Prov:MONTANA ROBLESBobby AVALOS 10/12/20 Cephalexin Monohydrate (Keflex) 500 Mg Cap, 500 MG PO TID for 7 Days, #21 CAP Prov:RAÚL ROBLES ROBBIE 10/12/20 Past Medical History Past Medical History: Anxiety, Depression Medical History Other: ANGER ISSUES Past Surgical History: Other Surgical History Other: D&C Family History Family History: Negative Social History Social History: Negative, Lives with family Female( History) History: Not Applicable : 3 Para: 2 Aborts: 1 ROS Dictation CONSTITUTIONAL: NO CHILLS, NO FEVER, NO WEAKNESS, NO DIAPHORESIS, NO MALAISE. HEAD/FACE: NO SIGNS OF TRAUMA. EENT: NO EYE PAIN, NO BLURRED VISION, NO TEARING, NO DOUBLE VISION, NO EAR PAIN, NO EAR DISCHARGE, NO NOSE PAIN, NO NASAL CONGESTION, NO THROAT PAIN, NO THROAT SWELLING, NO MOUTH PAIN. RESPIRATORY: NO COUGH, NO ORTHOPNEA, NO SOB, NO STRIDOR, NO WHEEZING. CARDIOVASCULAR: NO CHEST PAIN, NO EDEMA, NO PALPITATIONS, NO SYNCOPE. GASTROINTESTINAL/ABDOMINAL: NO ABDOMINAL PAIN, NO CONSTIPATION, NO DIARRHEA, NO NAUSEA, NO VOMITING. GENITOURINARY: NO ABNORMAL DISCHARGE, NO DYSURIA, NO FREQUENT URINATION, NO HEMATURIA. NO COMPLAINTS OF PAIN IN THE GENITALS. MUSCULOSKELETAL: NO BACK PAIN, NO GOUT, NO JOINT PAIN, NO JOINT SWELLING, NO MUSCLE PAIN, NO MUSCLE STIFFNESS, NO NECK PAIN. INTEGUMENTARY: NO CHANGE IN COLOR, NO CHANGE IN HAIR/NAILS, NO DRYNESS, NO LESION, NO LUMPS, NO RASH. NEUROLOGICAL/PSYCH: NO ANXIETY, NOT DEPRESSED, NO EMOTIONAL PROBLEM, NO HEADACHE, NO NUMBNESS, NO PRE-EXISTING DEFICIT, NO HISTORY OF SEIZURES, NO TREMORS, NO WEAKNESS. HEMATOLOGIC/LYMPHATIC: NOT ANEMIC, NO HISTORY OF BLOOD CLOTS, NO APPARENT BLEEDING, NO BRUISING, GLANDS NOT SWOLLEN. ALL SYSTEMS NEGATIVE, EXCEPT NOTED. Physical Exam Physical Exam Dictation VITAL SIGNS: REVIEWED. GENERAL APPEARANCE: ALERT, ORIENTED X3, NO ACUTE DISTRESS, OBESE. HEAD AND FACE: NON-TRAUMATIC. EYES: PERRL, PINK CONJUNCTIVAS, EYELID NO TRAUMA, ANTERIOR CHAMBER CLEAR. EARS: PINNAS INTACT AND NO SIGNS OF TRAUMA OR ERYTHEMA. EAR CANALS CLEAR AND NO DISCHARGE. TMS NO ERYTHEMA. NOSE: NO DISCHARGE, NO BLEEDING. OROPHARYNX: MOUTH NORMAL, TEETH NO CARIES, TONGUE PINK. PHARYNX CLEAR, NO ERYTHEMA. TONSILS NO EXUDATES, NO ABSCESSES NOTED. MUCOUS MEMBRANE MOIST. NECK: SUPPLE, NON-TENDER, NO THYROMEGALY, NO MASSES, NO JVD, NO BRUITS. BREAST: DEFERRED. CHEST: NO TENDERNESS, NO CREPITUS, NO PARADOXICAL MOVEMENT, NO RETRACTIONS. LUNGS: CLEAR, WELL-VENTILATED, SYMMETRIC, NO RALES, NO WHEEZING, NO RHONCHI, NO STRIDOR, GOOD BREATH SOUNDS BILATERALLY. HEART: REGULAR RATE, REGULAR RHYTHM, NO MURMUR, NO GALLOPS. VASCULAR: NO PERIPHERAL EDEMA. ABDOMEN: SOFT, POSITIVE BOWEL SOUNDS, NONDISTENDED, NO GUARDING, NONTENDER, NO REBOUND, NO MASSES NO HEPATOMEGALY, NO SPLENOMEGALY, NO EMNDOZA'S SIGN, NO HERNIAS. RECTAL: DEFERRED. GENITAL: DEFERRED. NEUROLOGICAL: NORMAL SPEECH, GROSS MOTOR FUNCTION INTACT, GROSS SENSORY FUNCTION INTACT. MUSCULOSKELETAL: NECK NONTENDER, FULL RANGE OF MOTION, BACK NONTENDER, FULL R MP OF MOTION. EXTREMITIES: NONTENDER, FULL RANGE OF MOTION. SKIN: COLOR PINK, DRY, NO TURGOR, NO RASH, NO LACERATIONS, NO ABRASIONS, NO CONTUSIONS. LYMPHATICS: DEFERRED. Results Laboratory and Microbiology Lab and Micro Result Laboratory Tests Test 05/01/24 08:59 Influenza Type A Antigen Negative For Type A Influenza Type B Antigen Negative For Type B SARS-CoV-2, RNA, NAAT NEGATIVE SARS CoV-2 Group A Streptococcus Rapid positive (NEGATIVE) *A Labs Reviewed?: Yes MDM MDM: Differential diagnosis: COVID, flu, strep Patient is a 29-year-old female coming in to be evaluated for URI symptoms. Laboratory workup positive for strep pharyngitis. Patient will be discharged with oral antibiotics I did advised her appropriate follow up with PCP 1-2 days. Patient will be discharged in stable condition throughout ER visit patient has been stable. ED Course Orders Procedure Category Date Status Time Covid Rna Naat LAB 05/01/24 Complete 08:55 Influenza Type A & B, LAB 05/01/24 Complete Rapid 08:55 Rapid (Group A Strep) LAB 05/01/24 Complete 08:55 Acetaminophen 500mg PHA 05/01/24 Complete Tab (Tylenol 500mg T 09:00 Ibuprofen 600 Mg PHA 05/01/24 Complete Tablet (Motrin) 09:00 Current Medications Medications (Trade) Dose Ordered Sig/Devyn Route PRN Reason Start Time Stop Time Status Last Admin Dose Admin Acetaminophen (TYLenol 500MG TAB) 1,000 mg ONCE ONCE PO 05/01/24 09:00 05/01/24 09:01 DC 05/01/24 09:14 Ibuprofen (moTRIN) 600 mg ONCE ONCE PO 05/01/24 09:00 05/01/24 09:01 DC 05/01/24 09:13 Vital Signs Date Time Temp Pulse Resp B/P (MAP) Pulse Ox O2 Delivery O2 Flow Rate FiO2 05/01/24 11:17 99.0 58 18 120/78 98 Room Air* 0 21 05/01/24 09:13 99.7 05/01/24 09:01 99.7 53 18 117/79 99 Room Air* 0 21 05/01/24 08:55 99.7 109 20 117/79 DX & DISP Disposition: Discharge Departure Impression: Primary Impression: Strep pharyngitis Condition: Stable Scripts Amoxicillin (Amoxicillin) 500 Mg Capsule 1 CAP PO TID for 10 Days, #30 CAP 0 Refills Prov: ELLE JACKSON MD 05/01/24 Additional Instructions: FOLLOW-UP WITH PRIMARY CARE PROVIDER IN 1 TO 2 DAYS. TAKE MEDICATIONS DIRECTED HERE IN THE EMERGENCY ROOM. OKAY TO CONTINUE HOME MEDICATIONS UNLESS OTHERWISE DISCUSSED DURING YOUR VISIT IN THE EMERGENCY ROOM TODAY. RETURN TO YOUR NEAREST EMERGENCY ROOM IF SYMPTOMS WORSEN OR IF THERE IS NO IMPROVEMENT. CALL 911 IF YOU NEED IMMEDIATE ASSISTANCE. TAKE TYLENOL [id number] NEEDED AND IF NO CONTRAINDICATIONS ARE PRESENT. INCREASE ORAL HYDRATION. A WOUND CULTURE OR URINE CULTURE WAS ORDERED HERE IN THE EMERGENCY ROOM DEPARTMENT PLEASE FOLLOW-UP WITH PRIMARY CARE PROVIDER AND ADVISE THEM TO GET REPEAT PORTS FROM OUR FACILITY. IF YOU HAD ANY JUSTIN WRAP/SPLINTS THAT WERE APPLIED HERE, PLEASE DO NOT REMOVE THEM UNTIL YOU SEE YOUR PRIMARY CARE OR SPECIALTY. Referrals: Referrals: WILDER PATTEN (PCP) Time of Disposition: 11:24 ELLE JACKSON MD May 01, 2024 09:01
[2024-05-01] MEDS: ibuPROFEN 600 MG TABLET PO ONE (09:13)
[2024-05-01] MEDS: acetaMINOPHEN 500 MG TABLET PO ONE (09:14)
[2024-05-01 09:47] LABS: SARS-CoV-2, RNA, NAAT NEGATIVE SARS CoV-2 (NEGATIVE)
[2024-05-01 10:03] VITALS: TEMP 99.6
[2024-05-01 11:17] VITALS: BP 120/78; PULSE 58; RESP 18; TEMP 99; O2SAT 98
[2024-05-01 11:17] LABS: INFLUENZA TYPE A Negative For Type A (NEGATIVE); INFLUENZA TYPE B Negative For Type B (NEGATIVE)
[2024-05-01 11:18] LABS: RAPID GROUP A STREP positive (NEGATIVE)
[2024-05-01] MEDS ORDERED: AMOX500C2 PO (11:24)
== END 2024-05-01 11:31 | disposition home or self-care (01) ==
LOC: EDH 08:51
DX: J02.0 Streptococcal pharyngitis (principal); Z20.822 Contact with and (suspected) exposure to COVID-19; Z79.899 Other long term (current) drug therapy
CPT/HCPCS: 87635; 87804; 87880; 99284

== ENCOUNTER 2024-06-27 22:13 | Emergency (ER) | payer MEDICAID ==
[~2024-06-27] VITALS: Ht 167.6 cm; Wt 93.0 kg
[~2024-06-27 22:13] MED LIST changes: +AMOX500C2 PO
--- NOTE | 2024-06-27 22:20 | NUR ---
PT CARE ASSUMED AT THIS TIME
--- NOTE | 2024-06-27 22:48 | ERN ---
General Chief Complaint: Dizzy/Light Headed Stated Complaint: DIZZINESS Time Seen by MD: 22:23 Source: patient History of Present Illness Initial Comments 29-year-old female who comes in feeling lightheaded and weak. She says that it always happens to her when she has her menses and this time though it is worse. She usually does have heavy menses. Her last menses started on the and is just ending now. She feels like the weakness is coming from the back of her head. During the exam she keeps moving her head turning her neck twisting it and massaging it with her hand. She is otherwise asymptomatic no signs of infection. Allergies: Coded Allergies: No Known Drug Allergies (Verified Allergy, Unknown, 12/15/14) Home Meds Active Scripts Amoxicillin (Amoxicillin) 500 Mg Capsule, 1 CAP PO TID for 10 Days, #30 CAP 0 Refills Prov:ELLE JACKSON MD 05/01/24 Sulfamethoxazole/Trimethoprim (Bactrim Ds Tablet) 800 Mg-160 Mg Tablet, 1 TAB PO BID for 7 Days, #7 TAB Prov:TOM SAHNI 07/10/23 Ciprofloxacin HCl/Dexameth (Ciproflox-Dexameth Otic Susp) 0.3 %-0.1 % Drops.susp, 7.5 ML OT BID, #4 DROP 0 Refills Prov:ODALIS MORALEZ Sr., MD 02/20/23 Amoxicillin/Potassium Clav (Augmentin Xr 1,000-62.5 Tab) 1,000 Mg-62.5 Mg Tab.er.12h, 1 EACH PO BID for 10 Days, #20 TAB 0 Refills Prov:ODALIS MORALEZ Sr., MD 02/20/23 Meclizine HCl (Meclizine HCl) 12.5 Mg Tablet, 12.5 MG PO BID PRN for VERTIGO for 5 Days, #10 TAB Prov:DELICIA PASCUAL 02/07/22 Naproxen (Naprosyn) 500 Mg Tablet, 500 MG PO BIDPC for 14 Days, #28 TAB 0 Refills Prov:SARAI GARCIA MD 07/24/21 Azithromycin (Azithromycin) 1 Gm Packet, 1 TAB PO AD for 5 Days, #1 PKT Prov:SARAI GARCIA MD 07/24/21 Cyclobenzaprine HCl (Flexeril) 10 Mg Tab, 10 MG PO BID, #30 TAB Prov:MARY ROBLESSANTOSH AVALOS 06/30/21 Naproxen (Naprosyn) 500 Mg Tablet, 500 MG PO BIDPC, #60 TAB Prov:MARY ROBLESSANTOSH AVALOS 06/30/21 Phenazopyridine HCl (Pyridium) 200 Mg Tab, 200 MG PO TIDPC, #9 TAB TAKE WITH FOOD TO PREVENT STOMACH UPSET. Prov:SHERINEELROYLATASHA CATHODE RAY TUBE ASSEMBLER 05/14/21 Cephalexin Monohydrate (Keflex) 500 Mg Cap, 500 MG PO QID for 7 Days, #28 CAP Prov:SHERINEARIESELATASHA CATHODE RAY TUBE ASSEMBLER 05/14/21 Phenazopyridine HCl (Pyridium) 200 Mg Tab, 200 MG PO TIDPC for 3 Days, #9 TAB TAKE WITH FOOD TO PREVENT STOMACH UPSET. Prov:ROBLESRAÚL PA 10/12/20 Cephalexin Monohydrate (Keflex) 500 Mg Cap, 500 MG PO TID for 7 Days, #21 CAP Prov:MARY ROBLESSANTOSH AVALOS 10/12/20 Past Medical History Past Medical History: Anxiety, Depression, Other Medical History Other: ANGER ISSUES Past Surgical History: None Surgical History Other: D&C Family History Family History: Negative Social History Social History: Negative, Lives with family Female( History) History: Not Applicable LMP: Jun 20, 2024 : 3 Para: 2 Aborts: 1 Constitutional: (-) chills, (-) diaphoresis, (-) fever, (-) malaise, (-) weakness, (-) other documentation EENTM: (-) eye pain, (-) blurred vision, (-) tearing, (-) double vision, (-) ear pain, (-) ear discharge, (-) nose pain, (-) nose congestion, (-) throat pain, (-) Throat swelling, (-) mouth pain, (-) tooth pain, (-) mouth swelling, (-) other documentation Respiratory: (-) cough, (-) orthopnea, (-) short of breath, (-) stridor, (-) wheezing, (-) other documentation Cardiovascular: (-) chest pain, (-) edema, (-) palpitations, (-) syncope, (-) dyspnea on exertion, (-) other documentation Gastrointestinal/Abdominal: (-) nausea, (-) vomiting, (-) diarrhea, (-) abdominal pain, (-) abdominal distention, (-) constipation, (-) rectal bleeding, (-) dark stool/melena, (-) other documentation Genitourinary: (+) vaginal bleeding Musculoskeletal: (-) Neck pain, (-) back pain, (-) Flank Pain, (-) joint pain, (-) joint swelling, (-) muscle pain, (-) muscle stiffness, (-) gout, (-) other documentation Skin: (-) laceration, (-) contusion, (-) abrasion, (-) abscess, (-) rash, (-) change in color, (-) change in hair, (-) change in nails, (-) diaphoresis, (-) dryness, (-) other documentation Neuro: (-) altered mental status, (-) headache, (-) syncope, (-) paralysis, (-) numbness, (-) seizure, (-) pre-existing deficit, (-) tremors, (-) weakness, (-) dizziness, (-) slurred speech, (-) vertigo, (-) other documentation Physical Exam General Appearance: (+) mild distress Orientation: (+) alert, (+) oriented x 3 Head/Face Trauma: No Eye: bilateral eye normal inspection, bilateral eye PERRL, bilateral eye EOMI Ear, Nose, Throat: (+) hearing grossly normal, (+) normal ENT inspection, (+) moist mucous membraine Neck: (+) normal inspection, (+) supple, (+) full range of motion, (+) non- tender Respiratory: (+) chest non-tender, (+) lungs clear, (+) well ventilated Heart: (+) regular, (+) tachycardia Vascular: (+) no edema, (+) normal peripheral pulse, (+) no JVD Gastrointestinal: (+) soft, (+) non-tender, (+) bowel sound present Results Laboratory and Microbiology Lab and Micro Result Laboratory Tests Test 06/27/24 23:06 06/27/24 23:24 White Blood Count 8.8 K/uL (4.8-10.8) Red Blood Count 4.18 MIL/uL (4.00-5.50) Hemoglobin 11.9 g/dL (12.0-16.0) L Hematocrit 36.4 % (36-48) Mean Corpuscular Volume 87.1 fL (79-99) Mean Corpuscular Hemoglobin 28.5 pg (27.0-33.0) Mean Corpuscular Hemoglobin Concent 32.7 g/dL (32.0-36.0) Red Cell Distribution Width 12.3 % (11.0-15.5) Platelet Count 418 K/uL (130-400) H Mean Platelet Volume 8.6 fL (7.5-10.5) Immature Granulocyte % (Auto) 0.3 % (0-1) Neutrophils (%) (Auto) 67.9 % (40.0-77.0) Lymphocytes (%) (Auto) 26.7 % (21.0-51.0) Monocytes (%) (Auto) 4.3 % (3.0-13.0) Eosinophils (%) (Auto) 0.6 % (0.0-8.0) Basophils (%) (Auto) 0.2 % (0.0-5.0) Neutrophils # (Auto) 5.9 K/uL (1.8-7.7) Lymphocytes # (Auto) 2.3 K/uL (1.0-4.8) Monocytes # (Auto) 0.4 K/uL (0.1-1.0) Eosinophils # (Auto) 0.05 K/uL (0.00-0.70) Basophils # (Auto) 0.02 K/uL (0.00-0.20) Absolute Immature Granulocyte (auto 0.03 K/uL (0-1) Nucleated Red Blood Cells 0.0 % (0.0-0.19) Sodium Level 137 mmol/L (136-145) Potassium Level 3.8 mmol/L (3.5-5.1) Chloride Level 102 mmol/L (101-111) Carbon Dioxide Level 29 mmol/L (21-32) Blood Urea Nitrogen 13 mg/dL (7-18) Creatinine 0.7 mg/dL (0.5-1.0) Glomerular Filtration Rate Calc 121 mL/min (>90) Random Glucose 110 mg/dL (70-105) H Total Calcium 9.2 mg/dL (8.5-10.1) Urine Color LIGHT-YELLOW (YELLOW) Urine Appearance CLEAR (CLEAR) Urine pH 5.5 (5.0-8.0) Urine Specific [place] 1.019 (1.001-1.031) Urine Protein NEGATIVE mg/dL (NEGATIVE) Urine Glucose (UA) NEGATIVE mg/dL (NEGATIVE) Urine Ketones NEGATIVE mg/dL (NEGATIVE) Urine Occult Blood LARGE (NEGATIVE) H Urine Nitrate NEGATIVE (NEGATIVE) Urine Bilirubin NEGATIVE mg/dL (NEGATIVE) Urine Urobilinogen 0.2 mg/dL (0.2-1.0) Urine Leukocyte Esterase NEGATIVE [facility]/uL Urine RBC TNTC /HPF (0-1) H Urine WBC 2-5 /HPF (0-1) H Urine Squamous Epithelial Cells FEW /HPF (0-2) Urine Other Crystals (Auto) 1 /HPF (None Seen) Urine Bacteria None /HPF (None Seen) MDM Patient is a 29-year-old female with lightheadedness that she associates with her menses. She is having a long menses currently. I will check her CBC and a chemistry panel and a urine as well as urine . I am not sure what is due about the patient feeling like her lightheadedness is coming from her neck. Her neck exam was unremarkable. Patient's CBC has come back with hemoglobin of 12 and a normal white count. Chemistry panel is also normal. And her UA was remarkable only for blood. No esterase activity. She tells me that the IV fluids are helping her quite a bit. It is possible the patient was simply dehydrated. In either case she is not anemic she does not have a urinary tract infection. She feels comfortable going home once the fluids have been delivered. ED Course Orders Procedure Category Date Status Time Basic Metabolic Panel LAB 06/27/24 Complete 22:48 Cbc With Differential LAB 06/27/24 Complete 22:48 ,Urine Test LAB 06/27/24 In Process 22:48 Urinalysis Profile LAB 06/27/24 In Process 22:48 Lactated Ringers PHA 06/27/24 Complete 1000ml (Lactated 22:48 Current Medications Medications (Trade) Dose Ordered Sig/Devyn Route PRN Reason Start Time Stop Time Status Last Admin Dose Admin Lactated Ringer's (Lactated Ringers 1000ml) 1,000 ml BOLUS STAT IV 06/27/24 22:48 06/27/24 22:51 DC 06/27/24 23:29 Vital Signs Date Time Temp Pulse Resp B/P (MAP) Pulse Ox O2 Delivery O2 Flow Rate FiO2 06/27/24 22:20 98.1 75 17 122/85 100 Room Air* 0 21 06/27/24 22:14 98.6 90 16 136/85 Room Air 0 DX & DISP Disposition: Discharge Departure Impression: Primary Impression: Tachycardia Condition: Stable Additional Instructions: Your red cell mass is adequate. You are not anemic. If your lightheadedness continues or gets worse please feel free to return to the emergency room. Referrals: WILDER PATTEN (PCP) SOO MALDONADO MD June 27, 2024 22:48
[2024-06-27 23:18] LABS: BASOPHILS # (AUTO) 0.02 K/uL (0.00-0.20); BASOPHILS % (AUTO) 0.2 % (0.0-5.0); EOSINOPHILS # (AUTO) 0.05 K/uL (0.00-0.70); EOSINOPHILS % (AUTO) 0.6 % (0.0-8.0); HEMATOCRIT 36.4 % (36-48); IMMATURE GRANULOCYTE ABSOLUTE 0.03 K/uL (0-1); LYMPHOCYTES # (AUTO) 2.3 K/uL (1.0-4.8); LYMPHOCYTES % (AUTO) 26.7 % (21.0-51.0); MEAN CORPUSCULAR HEMOGLOBIN 28.5 pg (27.0-33.0); MEAN CORPUSCULAR HGB CONC 32.7 g/dL (32.0-36.0); MEAN CORPUSCULAR VOLUME 87.1 fL (79-99); MONOCYTES # (AUTO) 0.4 K/uL (0.1-1.0); MONOCYTES % (AUTO) 4.3 % (3.0-13.0); NEUTROPHILS # (AUTO) 5.9 K/uL (1.8-7.7); NEUTROPHILS % (AUTO) 67.9 % (40.0-77.0); PLATELET COUNT (AUTO) 418 K/uL (130-400); RED BLOOD CELL COUNT(AUTO) 4.18 MIL/uL (4.00-5.50); RED CELL DISTRIBUTION WIDTH 12.3 % (11.0-15.5); WHITE BLOOD COUNT (AUTO) 8.8 K/uL (4.8-10.8)
[2024-06-27 23:28] LABS: CREATININE 0.7 mg/dL (0.5-1.0); POTASSIUM 3.8 mmol/L (3.5-5.1)
[2024-06-27] MEDS: LACTATED RINGERS 1000ML IV STA (23:29)
[2024-06-27 23:33] LABS: APPEARANCE,URINE CLEAR (CLEAR); BILIRUBIN,URINE NEGATIVE (NEGATIVE); COLOR,URINE LIGHT-YELLOW (YELLOW); GLUCOSE, URINE (UA) NEGATIVE (NEGATIVE); KETONES,URINE NEGATIVE (NEGATIVE); LEUKOCYTE ESTERASE ,URINE NEGATIVE Leu/uL (NEGATIVE); NITRATE,URINE NEGATIVE (NEGATIVE); OCCULT BLOOD,URINE LARGE (NEGATIVE); PH,URINE 5.5 (5.0-8.0); PROTEIN,URINE NEGATIVE (NEGATIVE); UROBILINOGEN,URINE 0.2 mg/dL (0.2-1.0)
[2024-06-27 23:34] LABS: ADD UA MICROSCOPIC YES
[2024-06-27 23:35] LABS: MUCUS,URINE RARE LPF (None Seen); RBC,URINE TNTC /HPF (0-1); SQUAMOUS EPITHELIAL CELL,UR FEW /HPF (0-2); UNCLASSIFIED CRYSTAL 1 /HPF (None Seen)
[2024-06-27 23:48] LABS: HCG,QUALITATIVE URINE NEGATIVE (NEGATIVE)
[2024-06-28 00:49] VITALS: BP 132/80; PULSE 72; RESP 15; TEMP 98.1; O2SAT 100
== END 2024-06-28 01:00 | disposition home or self-care (01) ==
LOC: EDH 22:13
DX: R00.0 Tachycardia, unspecified (principal)
CPT/HCPCS: 99283; 96360; 96361; 80048; 85025; 81001; 81025; 36415; J7120

== ENCOUNTER 2024-12-09 15:31 | Emergency (ER) | payer MEDICAID ==
[~2024-12-09] VITALS: Ht 167.6 cm; Wt 90.3 kg
--- NOTE | 2024-12-09 15:47 | ERN ---
General Chief Complaint: Dizzy/Light Headed Stated Complaint: DIZZINESS Time Seen by MD: 15:34 Source: patient History of Present Illness Initial Comments Patient is a 29-year-old female coming in complaining of feeling generalized weakness and off balance. Per patient she has had these symptoms for about three weeks. She also disclose that he has a history of depression anxiety and schizophrenia. She states he has not been prescribed any medication yet by her PCP. Allergies: Coded Allergies: No Known Drug Allergies (Verified Allergy, Unknown, 12/15/14) Home Meds Active Scripts Amoxicillin (Amoxicillin) 500 Mg Capsule, 1 CAP PO TID for 10 Days, #30 CAP 0 Refills Prov:ELLE JACKSON MD 05/01/24 Sulfamethoxazole/Trimethoprim (Bactrim Ds Tablet) 800 Mg-160 Mg Tablet, 1 TAB PO BID for 7 Days, #7 TAB Prov:TOM SAHNI 07/10/23 Ciprofloxacin HCl/Dexameth (Ciproflox-Dexameth Otic Susp) 0.3 %-0.1 % Drops.susp, 7.5 ML OT BID, #4 DROP 0 Refills Prov:ODALIS MORALEZ Sr., MD 02/20/23 Amoxicillin/Potassium Clav (Augmentin Xr 1,000-62.5 Tab) 1,000 Mg-62.5 Mg Tab.er.12h, 1 EACH PO BID for 10 Days, #20 TAB 0 Refills Prov:ODALIS MORALEZ Sr., MD 02/20/23 Meclizine HCl (Meclizine HCl) 12.5 Mg Tablet, 12.5 MG PO BID PRN for VERTIGO for 5 Days, #10 TAB Prov:DELICIA PASCUAL 02/07/22 Naproxen (Naprosyn) 500 Mg Tablet, 500 MG PO BIDPC for 14 Days, #28 TAB 0 Refills Prov:SARAI GARCIA MD 07/24/21 Azithromycin (Azithromycin) 1 Gm Packet, 1 TAB PO AD for 5 Days, #1 PKT Prov:SARAI GARCIA MD 07/24/21 Cyclobenzaprine HCl (Flexeril) 10 Mg Tab, 10 MG PO BID, #30 TAB Prov:RAÚL ROBLES 06/30/21 Naproxen (Naprosyn) 500 Mg Tablet, 500 MG PO BIDPC, #60 TAB Prov:RAÚL ROBLES PA 06/30/21 Phenazopyridine HCl (Pyridium) 200 Mg Tab, 200 MG PO TIDPC, #9 TAB TAKE WITH FOOD TO PREVENT STOMACH UPSET. Prov:CHECO BASURTO FIN[employer] CLE[employer]ER 05/14/21 Cephalexin Monohydrate (Keflex) 500 Mg Cap, 500 MG PO QID for 7 Days, #28 CAP Prov:CHECO BASURTO FINAL CLE[employer]ER 05/14/21 Phenazopyridine HCl (Pyridium) 200 Mg Tab, 200 MG PO TIDPC for 3 Days, #9 TAB TAKE WITH FOOD TO PREVENT STOMACH UPSET. Prov:RAÚL ROBLES PA 10/12/20 Cephalexin Monohydrate (Keflex) 500 Mg Cap, 500 MG PO TID for 7 Days, #21 CAP Prov:RAÚL ROBLES ROBBIE 10/12/20 Past Medical History Past Medical History: Anxiety Medical History Other: ANGER ISSUES Past Surgical History: None Surgical History Other: D&C Family History Family History: Negative Social History Social History: Negative, Lives with family Female( History) History: Not Applicable LMP: Dec 04, 2024 : 3 Para: 2 Aborts: 1 ROS Dictation CONSTITUTIONAL: No chills, no fever, no weakness, no diaphoresis, no malaise. HEAD/FACE: No signs of trauma. EENT: No eye pain, no blurred vision, no tearing, no double vision, no ear pain, no ear discharge, no nose pain, no nasal congestion, no throat pain, no throat swelling, no mouth pain. RESPIRATORY: No cough, no orthopnea, no SOB, no stridor, no wheezing. CARDIOVASCULAR: No chest pain, no edema, no palpitations, no syncope. GASTROINTESTINAL/ABDOMINAL: No abdominal pain, no constipation, no diarrhea, no nausea, no vomiting. GENITOURINARY: No abnormal discharge, no dysuria, no frequent urination, no hematuria. No complaints of pain in the genitals. MUSCULOSKELETAL: No back pain, no gout, no joint pain, no joint swelling, no muscle pain, no muscle stiffness, no neck pain. INTEGUMENTARY: No change in color, no change in hair/nails, no dryness, no lesion, no lumps, no rash. NEUROLOGICAL/PSYCH: No anxiety, not depressed, no emotional problem, no headache, no numbness, no pre-existing deficit, no history of seizures, no tremors, no weakness. HEMATOLOGIC/LYMPHATIC: Not anemic, no history of blood clots, no apparent bleeding, no bruising, glands not swollen. All Systems Negative, Except as Noted. Physical Exam Physical Exam Dictation VITAL SIGNS: Reviewed. GENERAL APPEARANCE: Alert, oriented x3, no acute distress, obese. HEAD AND FACE: Non-traumatic. EYES: PERRL, pink conjunctivas, eyelid no trauma, anterior chamber clear. EARS: Pinnas intact and no signs of trauma or erythema. Ear canals clear and no discharge. TMs no erythema. NOSE: No discharge, no bleeding. OROPHARYNX: Mouth normal, teeth no caries, tongue pink. Pharynx clear, no erythema. Tonsils no exudates, no abscesses noted. Mucous membrane moist. NECK: Supple, non-tender, no thyromegaly, no masses, no JVD, no bruits. BREAST: Deferred. CHEST: No tenderness, no crepitus, no paradoxical movement, no retractions. LUNGS: Clear, well-ventilated, symmetric, no rales, no wheezing, no rhonchi, no stridor, good breath sounds bilaterally. HEART: Regular rate, regular rhythm, no murmur, no gallops. VASCULAR: No peripheral edema. ABDOMEN: Soft, positive bowel sounds, nondistended, no guarding, nontender, no rebound, no masses no hepatomegaly, no splenomegaly, no Urrutia's sign, no hernias. RECTAL: Deferred. GENITAL: Deferred. NEUROLOGICAL: Normal speech, gross motor function intact, gross sensory function intact. MUSCULOSKELETAL: Neck nontender, full range of motion, back nontender, full range of motion. EXTREMITIES: Nontender, full range of motion. SKIN: Color pink, dry, no turgor, no rash, no lacerations, no abrasions, no contusions. LYMPHATICS: Deferred. Results Laboratory and Microbiology Lab and Micro Result Laboratory Tests Test 12/09/24 16:02 12/09/24 16:10 White Blood Count 10.2 K/uL (4.8-10.8) Red Blood Count 4.29 MIL/uL (4.00-5.50) Hemoglobin 12.2 g/dL (12.0-16.0) Hematocrit 37.6 % (36-48) Mean Corpuscular Volume 87.6 fL (79-99) Mean Corpuscular Hemoglobin 28.4 pg (27.0-33.0) Mean Corpuscular Hemoglobin Concent 32.4 g/dL (32.0-36.0) Red Cell Distribution Width 12.9 % (11.0-15.5) Platelet Count 437 K/uL (130-400) H Mean Platelet Volume 8.9 fL (7.5-10.5) Immature Granulocyte % (Auto) 0.5 % (0-1) Neutrophils (%) (Auto) 74.2 % (40.0-77.0) Lymphocytes (%) (Auto) 20.5 % (21.0-51.0) L Monocytes (%) (Auto) 4.1 % (3.0-13.0) Eosinophils (%) (Auto) 0.4 % (0.0-8.0) Basophils (%) (Auto) 0.3 % (0.0-5.0) Neutrophils # (Auto) 7.6 K/uL (1.8-7.7) Lymphocytes # (Auto) 2.1 K/uL (1.0-4.8) Monocytes # (Auto) 0.4 K/uL (0.1-1.0) Eosinophils # (Auto) 0.04 K/uL (0.00-0.70) Basophils # (Auto) 0.03 K/uL (0.00-0.20) Absolute Immature Granulocyte (auto 0.05 K/uL (0-1) Nucleated Red Blood Cells 0.0 % (0.0-0.19) Sodium Level 139 mmol/L (136-145) Potassium Level 4.1 mmol/L (3.5-5.1) Chloride Level 103 mmol/L (101-111) Carbon Dioxide Level 26 mmol/L (21-32) Blood Urea Nitrogen 10 mg/dL (7-18) Creatinine 0.6 mg/dL (0.5-1.0) Glomerular Filtration Rate Calc 125 mL/min (>90) Random Glucose 117 mg/dL (70-105) H Total Calcium 9.2 mg/dL (8.5-10.1) Magnesium Level 1.90 mg/dL (1.80-2.40) Total Creatine Kinase 43 U/L (21-232) Troponin I High Sensitivity < 4 ng/L (4-50) L Urine Color YELLOW (YELLOW) Urine Appearance SL CLOUDY (CLEAR) Urine pH 6.0 (5.0-8.0) Urine Specific [place] 1.025 (1.001-1.031) Urine Protein NEGATIVE mg/dL (NEGATIVE) Urine Glucose (UA) NEGATIVE mg/dL (NEGATIVE) Urine Ketones NEGATIVE mg/dL (NEGATIVE) Urine Occult Blood NEGATIVE (NEGATIVE) Urine Nitrate NEGATIVE (NEGATIVE) Urine Bilirubin NEGATIVE mg/dL (NEGATIVE) Urine Urobilinogen 0.2 mg/dL (0.2-1.0) Urine Leukocyte Esterase TRACE [place]/uL (NEGATIVE) H Urine RBC 6-10 /HPF (0-1) H Urine WBC 11-25 /HPF (0-1) H Urine Squamous Epithelial Cells MOD /HPF (0-2) Urine Bacteria RARE /HPF (None Seen) Urine HCG, Qualitative NEGATIVE (NEGATIVE) Labs Reviewed?: Yes EKG/XRAY/US/CT/MRI X-RAY Comment Chest X-ray- NAD MDM MDM: Differential diagnosis: Dehydration, anxiety, Rationale: Tests considered and ordered secondary to shared decision making include: Previous outside records reviewed: Old ER visits. Risk of complication and/or morbidity or mortality of patient management: None Medications-Per medication reconciliation Need for hospitalization: Patient does not meet criteria for hospitalization. Need for emergency major/minor surgery: No 29-year-old female coming in complaining weakness and vertigo at time. Per patient these symptoms has been ongoing for three weeks. Laboratory workup within normal limits patient was going to be hydrated due to dry mucous membrane but she refused she states she does not want any IV fluids issue with the dr inking of water at home. Rest of laboratory within normal limits. Patient will be discharged in stable condition with a diagnosis of dehydration ED Course Orders Procedure Category Date Status Time Cbc With Differential LAB 12/09/24 Complete 15:39 Chest 1vw RAD 12/09/24 Taken 15:39 12 Lead Ekg Tracing- EKG 12/09/24 Resulted Technical 15:39 Magnesium LAB 12/09/24 Complete 15:39 Creatine Kinase, Total LAB 12/09/24 Complete 15:39 Troponin I High LAB 12/09/24 Complete Sensitivity 15:39 Urinalysis Profile LAB 12/09/24 Complete 15:39 Basic Metabolic Panel LAB 12/09/24 Complete 15:39 ,Urine Test LAB 12/09/24 Complete 15:39 0.9%Nacl 1000ml (Ns PHA 12/09/24 Complete 1000ml) 16:00 Meclizine Hcl 12.5 Mg PHA 12/09/24 Complete (Antivert 12.5 Mg) 16:00 Culture Urine LEONARDO 12/09/24 In Process 16:34 Current Medications Medications (Trade) Dose Ordered Sig/Devyn Route PRN Reason Start Time Stop Time Status Last Admin Dose Admin Meclizine HCl (ANTIvert 12.5 mg) 12.5 mg ONCE ONCE PO 12/09/24 16:00 12/09/24 16:01 DC Sodium Chloride 1,000 ml @ 0 mls/hr ONCE ONCE IV 12/09/24 16:00 12/09/24 16:01 DC Vital Signs Date Time Temp Pulse Resp B/P (MAP) Pulse Ox O2 Delivery O2 Flow Rate FiO2 12/09/24 15:32 98.1 97 18 144/75 97 Room Air 0 DX & DISP Disposition: Discharge Departure Impression: Primary Impression: Anxiety Additional Impressions: Dehydration, Psychiatric illness Condition: Stable Additional Instructions: FOLLOW-UP WITH PRIMARY CARE PROVIDER IN 1 TO 2 DAYS. TAKE MEDICATIONS DIRECTED HERE IN THE EMERGENCY ROOM. OKAY TO CONTINUE HOME MEDICATIONS UNLESS OTHERWISE DISCUSSED DURING YOUR VISIT IN THE EMERGENCY ROOM TODAY. RETURN TO YOUR NEAREST EMERGENCY ROOM IF SYMPTOMS WORSEN OR IF THERE IS NO IMPROVEMENT. CALL 911 IF YOU NEED IMMEDIATE ASSISTANCE. TAKE TYLENOL [id number] NEEDED AND IF NO CONTRAINDICATIONS ARE PRESENT. INCREASE ORAL HYDRATION. A WOUND CULTURE OR URINE CULTURE WAS ORDERED HERE IN THE EMERGENCY ROOM DEPARTMENT PLEASE FOLLOW-UP WITH PRIMARY CARE PROVIDER AND ADVISE THEM TO GET REPORTS FROM OUR FACILITY. IF YOU HAD ANY JUSTIN WRAP/SPLINTS THAT WERE APPLIED HERE, PLEASE DO NOT REMOVE THEM UNTIL YOU SEE YOUR PRIMARY CARE OR SPECIALTY. Referrals: Referrals: JESSY JIN DO (PCP) Time of Disposition: 17:21 ELLE JACKSON MD Dec 09, 2024 15:47
[2024-12-09 15:55] VITALS: TEMP 98.1
[2024-12-09] MEDS: 0.9%NACL 1000ML 1,000 ML IV ONE (16:00)
--- NOTE | 2024-12-09 16:20 | EKG ---
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
[2024-12-09 16:27] LABS: APPEARANCE,URINE SL CLOUDY (CLEAR); GLUCOSE, URINE (UA) NEGATIVE (NEGATIVE); LEUKOCYTE ESTERASE ,URINE TRACE Leu/uL (NEGATIVE); NITRATE,URINE NEGATIVE (NEGATIVE); OCCULT BLOOD,URINE NEGATIVE (NEGATIVE)
[2024-12-09 16:29] LABS: ADD UA MICROSCOPIC YES
[2024-12-09 16:32] LABS: HCG,QUALITATIVE URINE NEGATIVE (NEGATIVE)
[2024-12-09 16:33] LABS: IMMATURE GRANULOCYTE ABSOLUTE 0.05 K/uL (0-1); NUCLEATED RED BLOOD CELLS 0.0 % (0.0-0.19); PLATELET COUNT (AUTO) 437 K/uL (130-400); RED BLOOD CELL COUNT(AUTO) 4.29 MIL/uL (4.00-5.50); RED CELL DISTRIBUTION WIDTH 12.9 % (11.0-15.5); WHITE BLOOD COUNT (AUTO) 10.2 K/uL (4.8-10.8)
[2024-12-09 16:33] LABS: SQUAMOUS EPITHELIAL CELL,UR MOD /HPF (0-2)
[2024-12-09 16:41] LABS: CREATININE 0.6 mg/dL (0.5-1.0); GLOMERULAR FILTR. RATE CALC 125.0 mL/min (>90); GLUCOSE,RANDOM 117.0 mg/dL (70-105); SODIUM SERUM 139.0 mmol/L (136-145); UREA NITROGEN, BLOOD 10.0 mg/dL (7-18)
[2024-12-09 16:50] LABS: CREATINE KINASE, TOTAL 43.0 U/L (21-232)
[2024-12-09 18:12] VITALS: BP 120/86; PULSE 63; RESP 16; O2SAT 100
--- NOTE | 2024-12-09 18:13 | HMCIMG ---
EXAM: CR Chest, 1 View. CLINICAL HISTORY: cp COMPARISON: None provided. FINDINGS: LUNGS: There is no mass, infiltrate, or acute pulmonary abnormality. PLEURAL SPACES: No pleural effusion or pneumothorax. MEDIASTINUM: The cardiomediastinal silhouette is within normal limits. BONES: No aggressive appearing osseous lesion seen. IMPRESSION: No acute cardiopulmonary pathology is evident. /[place]
[2024-12-11] MEDS ORDERED: LIDOCAINE PF 100MG/5ML (2%) SYRINGE 5ML ONE (11:48)
[2024-12-11] MEDS ORDERED: NEOSTIGMINE METHYLSULFATE 1MG/ML IV ONE (11:49)
[2024-12-11] MEDS ORDERED: SUCCINYLCHOLINE CHLORIDE 20 MG/ML 10 ML VIAL ONE (11:49)
[2024-12-11] MEDS ORDERED: GLYCOPYRROLATE 0.2 MG/ML 5 ML VIAL ONE (11:49)
[2024-12-11] MEDS ORDERED: MIDAZOLAM HCL 1 MG/ML 2ML VIAL ONE (11:51)
== END 2024-12-09 18:16 | disposition home or self-care (01) ==
LOC: EDH 15:31
DX: F41.9 Anxiety disorder, unspecified (principal); E86.0 Dehydration; Z79.899 Other long term (current) drug therapy; Z79.2 Long term (current) use of antibiotics
CPT/HCPCS: 36415; 71045; 80048; 81001; 81025; 82550; 83735; 84484; 85025; 87086; 93005; 99285

== ENCOUNTER 2025-01-23 13:38 | Emergency (ER) | payer MEDICAID ==
[~2025-01-23] VITALS: Ht 167.6 cm; Wt 94.8 kg
--- NOTE | 2025-01-23 13:49 | ERN ---
ED Note History of Present Illness Stated Complaint: NAUSEA VOMITING HEADACHE COUGH CONGESTION Chief Complaint: Flu Symptoms Time Seen by MD: 13:40 Time Seen by Midlevel: 13:45 Dictation: Ms. Langford is a 29 year old male with history of anxiety, anger issues", and obesity who presented to the emergency department this afternoon for evaluation of flu symptoms. She reports 24 hours of fatigue, general weakness, body aches, headache, cough, congestion, low back pain, nausea, and vomiting. She states tod ay she feels very weak and now short of breath prompting her to come to the hospital. She states she has taken no medication for her symptoms. She states her [id number] has been sick with similar symptoms. She denies recent travel. She denies fever, chills, chest pain, palpitations, edema, abdominal pain, hematemesis, constipation, diarrhea, melena, hematochezia, dysuria, dizziness, or focal weakness/paresthesia Allergies: Coded Allergies: No Known Drug Allergies (Verified Allergy, Unknown, 12/15/14) Home Meds Active Scripts Oseltamivir Phosphate (Tamiflu) 75 Mg Cap, 1 CAP PO BID for 5 Days, #10 CAP 0 Refills Prov:ZORA WEINER [facility] 01/23/25 Ondansetron (Ondansetron Odt) 4 Mg Tab.rapdis, 4 MG PO Q6HPRN PRN for nausea, #15 TAB 0 Refills Prov:ZORA WEINER [facility] 01/23/25 Ibuprofen (Ibuprofen) 600 Mg Tablet, 600 MG PO Q6H PRN for PAIN, #12 TAB 0 Refills Prov:ZORA WEINER [facility] 01/23/25 Benzonatate (Tessalon Perles) 100 Mg Cap, 1 CAP PO TID for cough, #12 CAP 0 Refills Prov:ZORA WEINER [facility] 01/23/25 Amoxicillin (Amoxicillin) 500 Mg Capsule, 1 CAP PO TID for 10 Days, #30 CAP 0 Refills Prov:ELLE JACKSON MD 05/01/24 Sulfamethoxazole/Trimethoprim (Bactrim Ds Tablet) 800 Mg-160 Mg Tablet, 1 TAB PO BID for 7 Days, #7 TAB Prov:TOM SAHNI 07/10/23 Ciprofloxacin HCl/Dexameth (Ciproflox-Dexameth Otic Susp) 0.3 %-0.1 % Drops.susp, 7.5 ML OT BID, #4 DROP 0 Refills Prov:ODALIS MORALEZ Sr., MD 02/20/23 Amoxicillin/Potassium Clav (Augmentin Xr 1,000-62.5 Tab) 1,000 Mg-62.5 Mg Tab.er.12h, 1 EACH PO BID for 10 Days, #20 TAB 0 Refills Prov:ODALIS MORALEZ Sr., MD 02/20/23 Meclizine HCl (Meclizine HCl) 12.5 Mg Tablet, 12.5 MG PO BID PRN for VERTIGO for 5 Days, #10 TAB Prov:DELICIA PASCUAL V [employer] 02/07/22 Naproxen (Naprosyn) 500 Mg Tablet, 500 MG PO BIDPC for 14 Days, #28 TAB 0 Refills Prov:SARAI GARCIA MD 07/24/21 Azithromycin (Azithromycin) 1 Gm Packet, 1 TAB PO AD for 5 Days, #1 PKT Prov:SARAI GARCIA MD 07/24/21 Cyclobenzaprine HCl (Flexeril) 10 Mg Tab, 10 MG PO BID, #30 TAB Prov:RAÚL ROBLES 06/30/21 Naproxen (Naprosyn) 500 Mg Tablet, 500 MG PO BIDPC, #60 TAB Prov:RAÚL ROBLES 06/30/21 Phenazopyridine HCl (Pyridium) 200 Mg Tab, 200 MG PO TIDPC, #9 TAB TAKE WITH FOOD TO PREVENT STOMACH UPSET. Prov:CHECO BASURTOP 05/14/21 Cephalexin Monohydrate (Keflex) 500 Mg Cap, 500 MG PO QID for 7 Days, #28 CAP Prov:CHECO BASURTOP 05/14/21 Phenazopyridine HCl (Pyridium) 200 Mg Tab, 200 MG PO TIDPC for 3 Days, #9 TAB TAKE WITH FOOD TO PREVENT STOMACH UPSET. Prov:RAÚL ROBLES 10/12/20 Cephalexin Monohydrate (Keflex) 500 Mg Cap, 500 MG PO TID for 7 Days, #21 CAP Prov:RAÚL ROBLES 10/12/20 Past Medical History Past Medical History: Anxiety Additional Past Medical Hx: ANGER ISSUES Surgical History: None Surgical History Other: D&C PSYCH History: anxiety, other ("anger issues") Family History: Negative Social History: Negative, Lives with family History: Not Applicable : 3 Para: 2 Aborts: 1 RN Note Reviewed/Agreed w/PFSH: Yes Review of System Dictation REVIEW OF SYSTEMS: CONSTITUTIONAL: Patient denies fevers, chills, sweats and weight changes. Reports fatigue and general weakness. EYES: Patient denies any visual symptoms. EARS, NOSE, AND THROAT: No difficulties with hearing. No symptoms of rhinitis or sore throat. CARDIOVASCULAR: Patient denies chest pains, palpitations, orthopnea and paroxysmal nocturnal dyspnea. RESPIRATORY: Reports cough, congestion, and shortness of breath. GI: No hematemesis, diarrhea, constipation, abdominal pain, hematochezia or melena. Reports nausea with emesis x1. : No urinary hesitancy or dribbling. No nocturia or urinary frequency. No abnormal urethral discharge. Reports low back pain MUSCULOSKELETAL: Reports body aches. NEUROLOGIC: No chronic headaches, no seizures. Patient denies numbness, tingling or weakness. Reports headache. PSYCHIATRIC: Patient denies problems with mood disturbance. No problems with anxiety. ENDOCRINE: No excessive urination or excessive thirst. DERMATOLOGIC: Patient denies any rashes or skin changes. Initial Vital Sign VS Vital Signs Date Time Temp Pulse Resp B/P (MAP) Pulse Ox O2 Delivery O2 Flow Rate FiO2 01/23/25 13:40 100.0 127 20 122/85 96 Nasal Cannula 2.0 01/23/25 13:46 21 Physical Exam Dictation Vital signs: Reviewed. Temp 100.0 Constitutional: No acute distress. Head/Face: Normocephalic, atraumatic. Eyes: Periorbital areas with no swelling, redness, or edema. Lids and lashes are normal. Conjunctival injection is absent. Sclera anicteric. Pupils equal, round, reactive to light. ENT: Pinnas intact and no signs of trauma or erythema. Ear canals clear and no discharge. TMs no erythema. No nasal discharge or bleeding noted. Oropharynx with no exudate, redness, swelling, masses, exudates, or evidence of obstructi on. Uvula midline. Mucous membranes slightly dry. Neck: Trachea midline, no masses palpated, and no cervical lymphadenopathy. No swelling. Supple, full range of motion. Chest/Axilla: No tenderness, no crepitus, no paradoxical movement, no retractions. Cardiovascular: Regular rate, regular rhythm, no murmur, no gallops. Symmetric pulses. No peripheral edema. nurse monitoring reflects sinus tachycardia; rate was 127 Respiratory: Respirations even and unlabored. Lung sounds diminished bilaterally; no wheezes, rales or rhonchi. No cough noted at this time. SpO2 96% on room air Gastrointestinal: Obese. No distention is appreciated. Bowel sounds are normal. No mass or organomegaly . There is no tenderness. No rebound. No rigidity. No voluntary or involuntary guarding. No Urrutia's sign. Neurological: Normal speech, gross motor function intact, gross sensory function intact. No focal weakness/Paresthesia. Musculoskeletal/Extremities: All extremities have full range of motion, no pain or tenderness on palpation. Symmetric pulses. Integumentary: Intact. Skin is normal color, warm and dry. Cap refill less than 2 seconds. Results (Laboratory/Radiology) Laboratory/Radiology Laboratory Tests Test 01/23/25 13:51 01/23/25 14:07 Influenza Type A Antigen Positive For Type A Influenza Type B Antigen Negative For Type B SARS-CoV-2, RNA, NAAT NEGATIVE SARS CoV-2 White Blood Count 4.6 K/uL (4.8-10.8) L Red Blood Count 3.60 MIL/uL (4.00-5.50) L Hemoglobin 10.2 g/dL (12.0-16.0) L Hematocrit 31.5 % (36-48) L Mean Corpuscular Volume 87.5 fL (79-99) Mean Corpuscular Hemoglobin 28.3 pg (27.0-33.0) Mean Corpuscular Hemoglobin Concent 32.4 g/dL (32.0-36.0) Red Cell Distribution Width 12.8 % (11.0-15.5) Platelet Count 258 K/uL (130-400) Mean Platelet Volume 8.5 fL (7.5-10.5) Immature Granulocyte % (Auto) 1.1 % (0-1) H Neutrophils (%) (Auto) 82.6 % (40.0-77.0) H Lymphocytes (%) (Auto) 8.6 % (21.0-51.0) L Monocytes (%) (Auto) 7.5 % (3.0-13.0) Eosinophils (%) (Auto) 0.0 % (0.0-8.0) Basophils (%) (Auto) 0.2 % (0.0-5.0) Neutrophils # (Auto) 3.8 K/uL (1.8-7.7) Lymphocytes # (Auto) 0.4 K/uL (1.0-4.8) L Monocytes # (Auto) 0.3 K/uL (0.1-1.0) Eosinophils # (Auto) 0.00 K/uL (0.00-0.70) Basophils # (Auto) 0.01 K/uL (0.00-0.20) Absolute Immature Granulocyte (auto 0.05 K/uL (0-1) Nucleated Red Blood Cells 0.0 % (0.0-0.19) White Cell Morphology Comment See comments Sodium Level 133 mmol/L (136-145) L Potassium Level 3.6 mmol/L (3.5-5.1) Chloride Level 99 mmol/L (101-111) L Carbon Dioxide Level 26 mmol/L (21-32) Blood Urea Nitrogen 10 mg/dL (7-18) Creatinine 0.7 mg/dL (0.5-1.0) Glomerular Filtration Rate Calc 121 mL/min (>90) Random Glucose 103 mg/dL (70-105) Total Calcium 8.4 mg/dL (8.5-10.1) L Labs Reviewed?: Yes X-RAY Comment: Chest x-ray shows lung man generally clear in the upper and mid zones. There is no obvious focal consolidation but some mild lower lung zone hazy opacities somewhat worsened from previous x-ray in November. Probable atelectasis. Interpreted by myself/Dr. Jackson ED Course ED Course Orders Procedure Category Date Status Time Influenza Type A & B, LAB 01/23/25 Complete Rapid 13:45 Covid Rna Naat LAB 01/23/25 Complete 13:45 0.9%Nacl 1000ml (Ns PHA 01/23/25 Complete 1000ml) 14:00 Ondansetron 4mg Inj PHA 01/23/25 Complete (Zofran 4mg Inj) 14:00 Ketorolac PHA 01/23/25 Complete Tromethamine 15mg/Ml 14:00 Cbc With Differential LAB 01/23/25 Complete 13:45 Basic Metabolic Panel LAB 01/23/25 Complete 13:45 Chest 1vw RAD 01/23/25 Resulted 13:54 Oseltamivir Phosphate PHA 01/23/25 Complete (Tamiflu) 15:00 Dexamethasone 4mg/Ml PHA 01/23/25 Complete 1ml Vial (Dexametha 15:00 0.9% Nacl 500ml PHA 01/23/25 Complete Iv.Soln (Ns 500ml 15:30 Acetaminophen 500mg PHA 01/23/25 Complete Tab (Tylenol 500mg T 15:30 Current Medications Medications (Trade) Dose Ordered Sig/Devyn Route PRN Reason Start Time Stop Time Status Last Admin Dose Admin Acetaminophen (TYLenol 500MG TAB) 1,000 mg ONCE ONCE PO 01/23/25 15:30 01/23/25 15:31 DC 01/23/25 15:28 Dexamethasone Sodium Phosphate (dexaMETHasone 4MG/ML 1ML VIAL) 6 mg ONCE ONCE IVP 01/23/25 15:00 01/23/25 15:01 DC 01/23/25 15:02 Ketorolac Tromethamine (toRADol) 15 mg ONCE ONCE IV 01/23/25 14:00 01/23/25 14:01 DC 01/23/25 14:15 Ondansetron HCl (zoFRAN 4MG INJ) 4 mg ONCE ONCE IVP 01/23/25 14:00 01/23/25 14:01 DC 01/23/25 14:15 Oseltamivir Phosphate (Tamiflu) 75 mg ONCE ONCE PO 01/23/25 15:00 01/23/25 15:01 DC 01/23/25 15:01 Sodium Chloride 500 ml @ 0 mls/hr Q0M IV 01/23/25 15:30 01/23/25 16:29 DC 01/23/25 15:28 Sodium Chloride 1,000 ml @ 0 mls/hr ONCE ONCE IV 01/23/25 14:00 01/23/25 14:01 DC 01/23/25 14:16 Vital Signs Date Time Temp Pulse Resp B/P (MAP) Pulse Ox O2 Delivery O2 Flow Rate FiO2 01/23/25 16:17 100.2 117 14 100/53 96 Room Air* 0 21 01/23/25 15:10 103.3 Room Air* 0 21 01/23/25 13:46 132 17 106/57 94 Room Air* 0 21 01/23/25 13:40 100.0 127 20 122/85 96 Nasal Cannula 2.0 Acute influenza infection presenting with cough, congestion, and flu-like symptoms. Influenza a test is positive; COVID and influenza B negative. Chest x-ray revealed no obvious focal consolidation. Slightly increased interstitial markings in the lower man somewhat worsened from previous x-ray in November. Suspect atelectasis. CBC notable for normal/low WBCs with relative neutrophilia and lymphopenia; consistent with viral infection. No signs of dehydration, respiratory distress, or secondary bacterial infection. Stable for outpatient management. While in the ED she received doses Zofran, Tylenol, Toradol, Tamiflu, Dexamethasone, and NS 1500 mL IV as bolus. Medical Decision Making MDM MDM: Differential diagnosis: Influenza A/B, COVID, UTI, pneumonia, acute dehydration Rationale: Tests considered and ordered secondary to shared decision making include: Lab, chest x-ray Previous outside records reviewed: Old ER visits. Risk of complication and/or morbidity or mortality of patient management: None Medications-Per medication reconciliation Need for hospitalization: Patient does not meet criteria for hospitalization. Need for emergency major/minor surgery: No There are no social concerns with this patient. Prescription drug management: Zofran, Tamiflu, ibuprofen, Tessalon Perles Prescriptions will include symptomatic care Patient's prior external medical records from other ER visits were reviewed by me as indicated. Prior testing and results from previous visits were reviewed. Prior tests were taken into account with medical decision making and resource utilization, independent historian/historians were used to obtain complete medical history. I independently interpreted the test that were performed, results were reviewed by me and considered findings on radiology if ordered. Medical management and examination interpretation discussions were had by me with other qualified healthcare professionals as indicated for the patient's care. DX & DISP Disposition: Discharge Departure Impression: Primary Impression: Influenza A Additional Impressions: Mild dehydration, Cough Condition: Stable Scripts Oseltamivir Phosphate (Tamiflu) 75 Mg Cap 1 CAP PO BID for 5 Days, #10 CAP 0 Refills Prov: ZORA WEINER [employer] 01/23/25 Ondansetron (Ondansetron Odt) 4 Mg Tab.rapdis 4 MG PO Q6HPRN PRN for nausea, #15 TAB 0 Refills Prov: ZORA WEINER [facility] 01/23/25 Ibuprofen (Ibuprofen) 600 Mg Tablet 600 MG PO Q6H PRN for PAIN, #12 TAB 0 Refills Prov: ZORA WEINER [facility] 01/23/25 Benzonatate (Tessalon Perles) 100 Mg Cap 1 CAP PO TID for cough, #12 CAP 0 Refills Prov: ZORA WEINER [facility] 01/23/25 Additional Instructions: You tested positive for influenza a today. Chest x-ray is clear and examined vital signs are reassuring. Influenza is a viral infection that causes fever, cough, congestion, muscle aches, fatigue, and poor appetite. It usually improves over 3-7 days; the cough may last 1-2 weeks. Make sure you rest and drink plenty of fluids. Isolate at home until you are fever free and symptoms are improving. Wash hands frequently. Avoid close contact with others, especially elderly or immunocompromise individual. Follow up with your primary care physician early next week. Return to the emergency department for any worsening of symptoms or concerns. Referrals: JESSY JIN DO (PCP) Time of Disposition: 14:47 ATTESTATION BY PHYSICIAN I PERFORMED THE SUBSTANTIVE PORTION OF THE VISIT. I HAVE REVIEWED AND PERSONALLY MADE AND APPROVED THE MANAGEMENT PLAN THAT IS DOCUMENTED IN THE NOTE BY MYSELF FOR THE A PP. ZORA WEINER [facility] Jan 23, 2025 13:49 ELLE JACKSON MD Jan 23, 2025 18:12
[2025-01-23] MEDS: 0.9%NACL 1000ML 1,000 ML IV ONE (14:16)
[2025-01-23 14:18] LABS: SARS-CoV-2, RNA, NAAT NEGATIVE SARS CoV-2 (NEGATIVE)
[2025-01-23 14:19] LABS: INFLUENZA TYPE B Negative For Type B (NEGATIVE)
[2025-01-23 14:22] LABS: IMMATURE GRANULOCYTE ABSOLUTE 0.05 K/uL (0-1); NUCLEATED RED BLOOD CELLS 0.0 % (0.0-0.19); PLATELET COUNT (AUTO) 258 K/uL (130-400); RED BLOOD CELL COUNT(AUTO) 3.60 MIL/uL (4.00-5.50); RED CELL DISTRIBUTION WIDTH 12.8 % (11.0-15.5); WHITE BLOOD COUNT (AUTO) 4.6 K/uL (4.8-10.8)
[2025-01-23 14:27] LABS: CREATININE 0.7 mg/dL (0.5-1.0); GLOMERULAR FILTR. RATE CALC 121.0 mL/min (>90); GLUCOSE,RANDOM 103.0 mg/dL (70-105); SODIUM SERUM 133.0 mmol/L (136-145); UREA NITROGEN, BLOOD 10.0 mg/dL (7-18)
[2025-01-23 14:28] LABS: INFLUENZA TYPE A Positive For Type A (NEGATIVE)
[2025-01-23] MEDS ORDERED: ONDA-243 PO (14:48)
[2025-01-23] MEDS ORDERED: OSEL75 PO (14:48)
[2025-01-23] MEDS ORDERED: BENZ-39 PO (14:48)
[2025-01-23] MEDS ORDERED: IBUP-1492 PO (14:48)
[2025-01-23] MEDS: OSELTAMIVIR PHOSPHATE 75 MG CAP PO ONE (15:01)
[2025-01-23] MEDS: 0.9% NACL 500ML IV.SOLN 500 ML IV SCH (15:28)
--- NOTE | 2025-01-23 15:35 | HMCIMG ---
EXAM: CR Chest, 1 View. CLINICAL HISTORY: cough, shortness of breath COMPARISON: 12/09 17:04 EDT FINDINGS: LUNGS: Scattered bilateral airspace densities, nonspecific may be a sequela of shallow lung volumes. Multifocal infectious etiology is not excluded. PLEURAL SPACES: No evidence of pleural effusion or pneumothorax. MEDIASTINUM: Cardiac size and mediastinal contours within normal limits. BONES: No aggressive appearing osseous lesion seen. IMPRESSION: Scattered bilateral airspace densities, nonspecific may be a sequela of shallow lung volumes. Multifocal infectious etiology is not excluded. /[place]
[2025-01-23 16:17] VITALS: BP 100/53; PULSE 117; RESP 14; TEMP 100.2; O2SAT 96
== END 2025-01-23 16:29 | disposition home or self-care (01) ==
LOC: EDH 13:38
DX: J10.1 Influenza due to other identified influenza virus with other respiratory manifestations (principal); E86.0 Dehydration; R05.9 Cough, unspecified; M54.50 Low back pain, unspecified; R11.2 Nausea with vomiting, unspecified; F41.9 Anxiety disorder, unspecified; Z20.822 Contact with and (suspected) exposure to COVID-19; Z79.899 Other long term (current) drug therapy
CPT/HCPCS: 99284; 96374; 96361; 96375; 71045; 87635; 80048; 85025; 87804 ×2; 36415; J1100; J1885; J7040; J7030; J2405